=== PATIENT | male | born 1945 | race Caucasian/White ===

== ENCOUNTER 2016-09-01 12:09 | Inpatient (IN) | payer MEDICARE ==
[2016-09-01] MEDS ORDERED: SODIUM CHLORIDE 0.9% 500 ML IV STA (12:46)
--- NOTE | 2016-09-01 12:48 | ED ---
General Adult HPI - General Chief complaint: Recheck/Abnormal Lab/Rx Stated complaint: dr sent Time Seen by Provider: 09/01/16 12:15 Source: patient, RN notes reviewed Mode of arrival: wheelchair Limitations: no limitations - History of Present Illness Initial comments: This is a 71-year-old male who presents emergency Department complaining of not feeling well. Patient states for a week now has had a sore throat cough and just been feeling weaker. Patient states he was put on steroids and an antibiotic and did not seem to help. Patient states he has actually had a worse cough now he has sputum production and he is mildly short of breath. Patient denies any chest pain or palpitations. Patient denies any numbness or weakness but does complain he has a slight headache on the left side. Patient denies any lightheadedness or near syncopal episode. Patient denies any recent injury, patient denies any dysuria hematuria or urinary frequency. Patient denies abdominal pain patient denies nausea vomiting diarrhea. Patient states he has been falling more often recently. He has not been injured. - Related Data Home Medications Medication Instructions Recorded Confirmed Aspirin 81 mg PO DAILY 10/09/14 09/01/16 Multivitamins, Thera [Theragran] 1 tab PO DAILY 10/09/14 09/01/16 Hydrochlorothiazide [Hydrodiuril] 25 mg PO DAILY 09/01/16 09/01/16 Loratadine [Claritin] 10 mg PO DAILY 09/01/16 09/01/16 Valsartan [Diovan] 160 mg PO DAILY 09/01/16 09/01/16 Verapamil HCl [Verapamil ER] 120 mg PO DAILY 09/01/16 09/01/16 Allergies Allergy/AdvReac Type Severity Reaction Status Date / Time No Known Allergies Allergy Verified 09/01/16 13:47 Review of Systems ROS Statement: Those systems with pertinent positive or pertinent negative responses have been documented in the HPI. ROS Other: All systems not noted in ROS Statement are negative. Past Medical History Past Medical History: Hypertension Additional Past Medical History / Comment(s): migraines, gout History of Any Multi-Drug Resistant Organisms: None Reported Past Surgical History: Orthopedic Surgery Additional Past Surgical History / Comment(s): rt rotator cuff Past Anesthesia/Blood Transfusion Reactions: No Reported Reaction Past Psychological History: No Psychological Hx Reported Smoking Status: Former smoker Past Alcohol Use History: Occasional Past Drug Use History: None Reported General Exam - General Exam Comments Initial Comments: GENERAL: Patient is well-developed and well-nourished. Patient is nontoxic and well- hydrated and is in mild distress. ENT: Neck is soft and supple. No significant lymphadenopathy is noted. Oropharynx is clear. Moist mucous membranes. Neck has full range of motion without eliciting any pain. EYES: The sclera were anicteric and conjunctiva were pink and moist. Extraocular movements were intact and pupils were equal round and reactive to light. Eyelids were unremarkable. PULMONARY: Unlabored respirations. Good breath sounds bilaterally. No audible rales rhonchi or wheezing was noted. CARDIOVASCULAR: There is a regular rate and rhythm without any murmurs gallops or rubs. ABDOMEN: Soft and nontender with normal bowel sounds. No palpable organomegaly was noted. There is no palpable pulsatile mass. SKIN: Skin is clear with no lesions or rashes and otherwise unremarkable. NEUROLOGIC: Patient is alert and oriented x3. Cranial nerves II through XII are grossly intact. Motor and sensory are also intact. Normal speech, volume and content. Symmetrical smile. MUSCULOSKELETAL: Normal extremities with adequate strength and full range of motion. No lower extremity swelling or edema. No calf tenderness. LYMPHATICS: No significant lymphadenopathy is noted PSYCHIATRIC: Normal psychiatric evaluation. Normal interpersonal interactions appears functionally intact in deals appropriately with others. No signs of depression. No signs of anxiety. Limitations: no limitations Course Vital Signs 09/01/16 09/01/16 12:13 13:26 Temperature 98.8 F 98.1 F Pulse Rate 77 69 Respiratory 18 24 Rate Blood Pressure 124/58 139/61 O2 Sat by Pulse 98 100 Oximetry Medical Decision Making - Medical Decision Making EKG shows normal sinus rhythm at 71 bpm [place] interval is on a 68 QRSs 100 a QT interval 370 QTC is 410. Patient's EKG shows no ST segment elevation or depression or T-wave abdomen is noted. Patient's CT of the head was normal. Patient's chest x-ray was normal. Once I got the labs back patient had a elevated creatinine so I admitted the patient. I spoke with Dr. Mccollum he agreed to admit the patient admitted the patient wrote admit orders. I consult nephrology. Patient also had low sodiums I gave the patient some normal saline to slowly elevate his sodium. - Lab Data Result diagrams: 09/01/16 13:00 09/01/16 13:00 Lab Results 09/01/16 09/01/16 09/01/16 Range/Units 13:00 13:00 13:00 WBC 4.8 (3.8-10.6) k/uL RBC 4.00 L (4.30-5.90) m/uL Hgb 12.8 L (13.0-17.5) gm/dL Hct 37.7 L (39.0-53.0) % MCV 94.2 (80.0-100.0) fL MCH 32.0 (25.0-35.0) pg MCHC 33.9 (31.0-37.0) g/dL RDW 13.8 (11.5-15.5) % PT (9.0-12.0) sec INR (<1.1) APTT (22.0-30.0) sec Sodium 123 L (137-145) mmol/L Potassium 5.2 H (3.5-5.1) mmol/L Chloride 94 L (98-107) mmol/L Carbon Dioxide 15 L (22-30) mmol/L Anion Gap 14 mmol/L BUN 94 H* (9-20) mg/dL Creatinine 4.45 H (0.66-1.25) mg/dL Est GFR (MDRD) Af Amer 16 (>60 ml/min/1.73 sqM) Est GFR (MDRD) Non-Af 13 (>60 ml/min/1.73 sqM) Glucose 96 (74-99) mg/dL Calcium 8.7 (8.4-10.2) mg/dL Magnesium 2.6 H (1.6-2.3) mg/dL Total Bilirubin 0.8 (0.2-1.3) mg/dL AST 68 H (17-59) U/L ALT 180 H (21-72) U/L Alkaline Phosphatase 109 (38-126) U/L Total Creatine Kinase 49 L (55-170) U/L CK-MB (CK-2) 0.7 (0.0-2.4) ng/mL CK-MB (CK-2) Rel Index 1.4 Troponin I <0.012 (0.000-0.034) ng/mL Total Protein 6.5 (6.3-8.2) g/dL Albumin 3.4 L (3.5-5.0) g/dL TSH 1.140 (0.465-4.680) mIU/L Free T4 1.06 (0.78-2.19) ng/dL Urine Color Urine Appearance (Clear) Urine pH (5.0-8.0) Ur Specific [place] (1.001-1.035) Urine Protein (Negative) Urine Glucose (UA) (Negative) Urine Ketones (Negative) Urine Blood (Negative) Urine Nitrate (Negative) Urine Bilirubin (Negative) Urine Urobilinogen (<2.0) mg/dL Ur Leukocyte Esterase (Negative) 09/01/16 09/01/16 Range/Units 13:00 13:20 WBC (3.8-10.6) k/uL RBC (4.30-5.90) m/uL Hgb (13.0-17.5) gm/dL Hct (39.0-53.0) % MCV (80.0-100.0) fL MCH (25.0-35.0) pg MCHC (31.0-37.0) g/dL RDW (11.5-15.5) % PT 11.5 (9.0-12.0) sec INR 1.1 (<1.1) APTT 25.0 (22.0-30.0) sec Sodium (137-145) mmol/L Potassium (3.5-5.1) mmol/L Chloride (98-107) mmol/L Carbon Dioxide (22-30) mmol/L Anion Gap mmol/L BUN (9-20) mg/dL Creatinine (0.66-1.25) mg/dL Est GFR (MDRD) Af Amer (>60 ml/min/1.73 sqM) Est GFR (MDRD) Non-Af (>60 ml/min/1.73 sqM) Glucose (74-99) mg/dL Calcium (8.4-10.2) mg/dL Magnesium (1.6-2.3) mg/dL Total Bilirubin (0.2-1.3) mg/dL AST (17-59) U/L ALT (21-72) U/L Alkaline Phosphatase (38-126) U/L Total Creatine Kinase (55-170) U/L CK-MB (CK-2) (0.0-2.4) ng/mL CK-MB (CK-2) Rel Index Troponin I (0.000-0.034) ng/mL Total Protein (6.3-8.2) g/dL Albumin (3.5-5.0) g/dL TSH (0.465-4.680) mIU/L Free T4 (0.78-2.19) ng/dL Urine Color Yellow Urine Appearance Clear (Clear) Urine pH 5.0 (5.0-8.0) Ur Specific [place] 1.008 (1.001-1.035) Urine Protein Trace H (Negative) Urine Glucose (UA) Negative (Negative) Urine Ketones Negative (Negative) Urine Blood Negative (Negative) Urine Nitrate Negative (Negative) Urine Bilirubin Negative (Negative) Urine Urobilinogen <2.0 (<2.0) mg/dL Ur Leukocyte Esterase Negative (Negative) Disposition Clinical Impression: Acute renal failure, Hyponatremia Disposition: ADMITTED IP TO THIS [facility] Time of Disposition: 14:26
[2016-09-01 13:33] LABS: Appearance,Urine Clear (Clear); Bilirubin,Urine Negative (Negative); Glucose,Urine (UA) Negative (Negative); Ketones,Urine Negative (Negative); Leukocyte Esterase,Urine Negative (Negative); Nitrite,Urine Negative (Negative); Protein,Urine Trace (Negative); Specific Gravity,Urine 1.008 (1.001-1.035); UA Billing (MACRO vs. MICRO) CHEM; Urobilinogen,Urine <2.0 mg/dL (<2.0)
[2016-09-01 13:41] LABS: Calcium 8.7 mg/dL (8.4-10.2); INR 1.1 (<1.1); Magnesium 2.6 mg/dL (1.6-2.3); Potassium 5.2 mmol/L (3.5-5.1); Prothrombin Time 11.5 sec (9.0-12.0); Total Bilirubin 0.8 mg/dL (0.2-1.3); Total Protein 6.5 g/dL (6.3-8.2)
[2016-09-01 13:54] LABS: Basophils % (A) 0 %; CH 32.6; CHCM 34.7; Eosinophils % (A) 1 %; HCT 37.7 % (39.0-53.0); HDW 2.64; HGB 12.8 gm/dL (13.0-17.5); Luc % (Auto) 2; Lymphocytes # (A) 0.3 k/uL (1.0-4.8); Lymphocytes % (A) 5 %; MCHC 33.9 g/dL (31.0-37.0); MCV 94.2 fL (80.0-100.0); Mean Platelet Volume 8.4; Monocytes # (A) 0.2 k/uL (0-1.0); Monocytes % (A) 4 %; Neutrophils # (A) 4.3 k/uL (1.3-7.7); Neutrophils % (A) 88 %; RDW 13.8 % (11.5-15.5); WBC 4.8 k/uL (3.8-10.6); WBC (Perox) 4.62
[2016-09-01 13:59] LABS: Creatine Kinase 49 U/L (55-170)
--- NOTE | 2016-09-01 14:09 | CT ---
EXAMINATION TYPE: CT brain wo con DATE OF EXAM: 09/01/2016 2:00 PM COMPARISON: NONE INDICATION: Weakness DLP: 1213 mGycm, Automated exposure control for dose reduction was used. CONTRAST: None CT of the brain is performed utilizing 3 mm thick sections through the posterior fossa and 3 mm thick sections through the remaining calvarium. Study is performed within 24 hours of arrival to the hosp ital. No abnormal hyperdensity is present to suggest an acute intracranial hemorrhage. No mass lesion is evident. No acute infarcts are evident. Mild hypodensity is adjacent to the anterior horns of the lateral vent ricles compatible some mild chronic appearing white matter ischemic change. Ventricles and sulci are appropriate for the patient age. There is some mild mucosal thickening within posterior ethmoid air cells bilaterally. Retention cyst or mild mucosal thickening is within sphenoid sinus. Remaining paranasal sinuses and mastoid air cell s are clear. IMPRESSIONS: 1. Chronic appearing mild white matter ischemic changes.
[2016-09-01 14:12] LABS: Creatine Kinase MB 0.7 ng/mL (0.0-2.4); Troponin I <0.012 ng/mL (0.000-0.034)
--- NOTE | 2016-09-01 14:14 | XR ---
EXAMINATION TYPE: XR chest 2V DATE OF EXAM: 09/01/2016 1:42 PM COMPARISON: NONE HISTORY: Cough and congestion with weakness. TECHNIQUE: Frontal and lateral views of the chest are obtained. FINDINGS: There is no focal air space opacity, pleural effusion, or pneumothorax seen. The cardiac silhouette size is within normal limits with atherosclerotic thoracic aorta. Multilevel spurring in t he thoracolumbar spine is present. Degenerative arthropathy bilateral acromioclavicular joints is pre sent. IMPRESSION: No acute cardiopulmonary process.
[2016-09-01] MEDS ORDERED: SODIUM CHLORIDE 0.9% 1,000 ML IV ONE (14:26)
[2016-09-01 14:35] LABS: Manual Review Performed
[2016-09-01 14:36] LABS: RBC Morphology Normal
[2016-09-01] MEDS ORDERED: HYDROmorphone 1 MG/ML 1 ML SYRINGE IVP PRN (16:18)
[2016-09-01] MEDS ORDERED: ALPRAZolam 0.25 MG TAB PO PRN (16:18)
--- NOTE | 2016-09-01 19:38 | HP ---
DATE OF ADMISSION: 09/01/2016 CHIEF COMPLAINT: Not feeling well and renal failure. HISTORY OF PRESENT ILLNESS: This 71-year-old gentleman with a past medical history of multiple medical problems, including hypertension, history of migraine, history of gout in bilateral feet, history of right rotator cuff injury, being followed by Dr. Maldonado in the outpatient setting, was not feeling well for the past one week. The patient was having cough and throat. He was started on antibiotics and steroids. Because of lack of improvement, patient went to Dr. Maldonado's office. Blood work was done, and because of concerns about renal failure, the patient was sent to [facility] emergency room and admitted for further evaluation and treatment. Of note, the creatinine was found to be 4.45, indicating acute renal failure. BUN is 95. AST and ALT were also elevated. Creatine kinase was 49. Sodium was 123, potassium 5.2. The patient was admitted for further evaluation and treatment. Patient had some thrombocytopenia and anemia, also. There is no history of any rigor or chills. No history of any headache, loss of consciousness. No history of hemoptysis, melena at this time. PAST MEDICAL HISTORY: 1. History of hypertension. 2. Migraine. 3. History of gout bilaterally. 4. History of recent flu-like syndrome. Medications prior to admission include: 1. Verapamil 120 mg p.o. daily. 2. Claritin 10 mg daily. 3. Diovan 160 mg p.o. daily. 4. Multivitamins 1 p.o. daily. 5. HydroDIURIL 25 mg daily. 6. Aspirin 81 mg daily. ALLERGIES: NONE. FAMILY HISTORY: History of COPD. SOCIAL HISTORY: Previous history of smoking. Occasional alcohol intake. REVIEW OF SYSTEMS: ENT: No diminished hearing. No diminished vision. CARDIOVASCULAR SYSTEM: No angina or palpitations. RESPIRATORY: No cough, hemoptysis. GI: No nausea, vomiting. : As mentioned earlier. NERVOUS SYSTEM: No numbness or weakness. ALLERGY/IMMUNOLOGY: No asthma, hayfever. MUSCULOSKELETAL: As mentioned earlier. HEMATOLOGY/ONCOLOGY: No history of anemia. ENDOCRINE: No history of diabetes, hypothyroidism. CONSTITUTIONAL: As mentioned earlier. DERMATOLOGY: Negative. RHEUMATOLOGY: Negative. PSYCHIATRY: As mentioned earlier. PHYSICAL EXAMINATION: Patient alert and oriented x3. Pulse 70, blood pressure 127/72, respiration 18, temperature 97.6, pulse ox 98% on 2 L. HEENT: Conjunctivae normal. Oral mucosa moist. NECK: No jugular venous distention. No carotid bruit. No lymph node enlargement. CARDIOVASCULAR SYSTEM: S1, S2 muffled. No S3. No S4. RESPIRATORY SYSTEM: Breath sounds diminished at the bases. A few scattered rhonchi. No crackles. ABDOMEN: Soft, nontender. No mass palpable. No hepatosplenomegaly. Obese. LEGS: No edema. No swelling. NERVOUS SYSTEM: Higher functions as mentioned earlier. Moves all 4 limbs. No focal motor or sensory deficit. LYMPHATICS: No lymph node palpable in neck, axillae or groin. SKIN: No ulcer, rash, bleeding. JOINTS: No active deforming arthropathy. LABS: WBC 4.8, hemoglobin 12.8, platelets 86. Sodium 123, potassium 5.2. CO2 is 15. Creatinine is 4.45. BUN is 94. The magnesium is 2.6. AST 68, ALT is 180. Albumin is 3.4. ASSESSMENT: 1. Acute renal failure, possibly acute tubular necrosis with prerenal factors. 2. Hyponatremia. 3. Hyperkalemia. 4. Decreased carbon dioxide. 5. Anemia, normocytic. 6. Thrombocytopenia. 7. Increased AST, ALT; possibly mild hepatitis of undetermined etiology. 8. History of recent flu-like syndrome. 9. Hypertension. 10. History of migraines. 11. History of gout. 12. History of degenerative joint disease. 13. History of colonoscopy and polypectomy. 14. Remote history nicotine dependence. 15. FULL CODE. RECOMMENDATIONS AND DISCUSSION: In this 71-year-old gentleman who presented with multiple medical problems, at this time we will monitor the patient closely, continue the current medication, continue the symptomatic treatment. The exact etiology of renal failure is unknown at this time. I would recommend IV fluids and continue to monitor. The home medications will be reconciled. Nephrology will be consulted. Ultrasound of the kidneys will be ordered to rule out the possibility of any obstruction; otherwise, prognosis is guarded because of multiple complex medical issues. Further recommendations to follow. See orders for further details. Will send a report to Dr. Maldonado, who is the primary physician. Discussed with the patient, who understands and agrees. Further recommendations to follow.
[2016-09-01] MEDS: HEPARIN SODIUM,PORCINE 5,000 UNIT/ML 1 ML VIAL SQ SCH (21:28)
[2016-09-01] MEDS: ACETAMINOPHEN TAB 325 MG TAB PO PRN (21:28)
[2016-09-01] MEDS: LEVALBUTEROL NEB 1.25 MG/3 ML AMP INHALATION SCH (22:01)
[2016-09-01] MEDS: MELATONIN 3 MG TABLET PO SCH (22:22)
--- NOTE | 2016-09-02 08:17 | US ---
EXAMINATION TYPE: US kidneys/renal and bladder DATE OF EXAM: 09/02/2016 7:58 AM COMPARISON: NONE CLINICAL HISTORY: Acute renal failure. EXAM MEASUREMENTS: Right Kidney: 15.2 x 8.2 x 7.0 cm Left Kidney: not visualized FINDINGS: multiple cyst right kidney, unable to image left kidney, scanned into pelvis, no left kidn ey visualized; only right ureteral jet seen Right Kidney: enlarged, multiple cysts: 1)3.3 x 3.6 x 3. cm ; 2) 2.5 x 3.2 x 2.4 cm; 3) 4.7 x 4.9 x 3.9 cm; 4) 2.6 x 2.6 x 2.7 cm Left Kidney: not visualized in left renal fossa or left pelvis Bladder: distended with diverticula left Bilateral Jets seen: no, right only No hydronephrosis or nephrolithiasis. IMPRESSION: 1. Suspect bladder diverticulum on the left. 2. Nonvisualization of the left kidney. 3. Right kidney demonstrates multiple cysts which have a simple appearance. A single cyst measuring 3 .3 x 3.6 cm does contain a single calcification compatible with Bosniak classification 2 cyst. Remain ing cysts are compatible with simple Bosniak 1 classification cyst.
[2016-09-02] MEDS: LEVALBUTEROL NEB 1.25 MG/3 ML AMP INHALATION SCH ×3 (08:32→19:54)
[2016-09-02] MEDS: HEPARIN SODIUM,PORCINE 5,000 UNIT/ML 1 ML VIAL SQ SCH ×2 (09:16→20:49)
[2016-09-02] MEDS: PANTOPRAZOLE 40 MG TABLET PO SCH (09:16)
[2016-09-02] MEDS: VERAPAMIL SR 120 MG TABLET.ER PO SCH (09:16)
[2016-09-02 09:33] VITALS: BMI 28.7
[2016-09-02 10:21] LABS: Basophils % (A) 0 %; CH 32.4; Eosinophils % (A) 1 %; HDW 2.67; HGB 11.7 gm/dL (13.0-17.5); Luc # (Auto) 0.08; Luc % (Auto) 3; Lymphocytes # (A) 0.4 k/uL (1.0-4.8); Lymphocytes % (A) 11 %; MCHC 33.4 g/dL (31.0-37.0); MCV 95.6 fL (80.0-100.0); Mean Platelet Volume 8.3; Monocytes # (A) 0.2 k/uL (0-1.0); Monocytes % (A) 5 %; Neutrophils # (A) 2.6 k/uL (1.3-7.7); Neutrophils % (A) 81 %; RBC 3.66 m/uL (4.30-5.90); RDW 13.9 % (11.5-15.5); WBC 3.2 k/uL (3.8-10.6); WBC (Perox) 3.49
[2016-09-02 10:45] LABS: Calcium 8.3 mg/dL (8.4-10.2); Potassium 5.3 mmol/L (3.5-5.1); Total Bilirubin 0.8 mg/dL (0.2-1.3); Total Protein 5.7 g/dL (6.3-8.2)
[2016-09-02] MEDS: SODIUM CHLORIDE 0.9% 1,000 ML IV SCH ×2 (12:55→20:49)
--- NOTE | 2016-09-02 16:30 | CONS ---
DATE OF CONSULTATION: 09/02/2016 REASON FOR CONSULTATION: Renal failure. HISTORY OF PRESENT ILLNESS: Patient is a 71-year-old male who was admitted to the hospital with complaints of not feeling well and he was weak. He had not been eating much. Patient was initially treated on antibiotics and steroids as outpatient, but since he did not improve and outpatient blood work also showed worsening renal function, therefore patient was advised admission. He denied the use of any non-steroidal anti-inflammatory agents. Admission sodium was 123 and serum creatinine 4.45 with a BUN of 94. Patient has been maintained on IV saline and his sodium has now improved to 130 and serum creatinine down to 2.53. He denies any prior history of kidney diseases. The UA is fairly benign and blood pressure was not significantly low at the time of admission. PAST MEDICAL HISTORY: 1. Hypertension. 2. Gout. 3. Migraine. Medications prior to admission included: 1. Verapamil. 2. Claritin. 3. Diovan. 4. Multivitamins. 5. HydroDIURIL. 6. Aspirin. ALLERGIES: NONE. REVIEW OF SYSTEMS: As per HPI. Other systems negative. On examination, patient is currently comfortable, awake. He is not in any acute distress. Blood pressure is 118/65, heart rate 86 per minute. He is afebrile. EXAMINATION OF THE HEART: S1 and S2. EXAMINATION OF THE LUNGS: Bilateral breath sounds are heard. Decreased breath sounds in bases. ABDOMEN: Soft, nontender. Examination of lower extremities shows no evidence of edema. BEHAVIOR SPECIALIST exam is grossly intact. Labs show sodium 130, potassium 5.3, BUN 70, serum creatinine 2.53. Hemoglobin 11.7 g/dL. UA shows trace protein. Chest x-ray was unremarkable. Ultrasound showed possible bladder diverticulum, multiple cysts on the right kidney which appeared to be benign. Patient does not have a left kidney. ASSESSMENT: 1. Acute kidney injury, prerenal, currently improving with IV hydration. 2. Rule out chronic kidney disease with solitary kidney, as a left kidney is not identified on the ultrasound. We do not have previous labs available for comparison. 3. Hypovolemic hyponatremia, improved with saline. 4. Mild metabolic acidosis secondary to renal failure, currently improved. 5. Hypertension, currently controlled. Avoid hypotension. PLAN: Continue IV fluids. Repeat labs in a.m. Thank you for this consultation. Will continue to follow the patient with you during his hospitalization.
--- NOTE | 2016-09-02 16:31 | P.PN ---
Subjective Date of service 09/02/2016. Progress note being dictated for Dr. Mccollum. Interval history: This a 71-year-old gentleman admitted with acute renal failure , possibly acute tubular necrosis. Prerenal factors, hyponatremia, hyperkalemia , mild elevated LFTs, recent flulike syndrome, tested negative for influenza and multiple other medical issues. Brain CT reporting chronic appearing mild white matter ischemic changes Maintained on IV fluid hydration with significant improvement in renal function and electrolytes. Renal ultrasound reporting suspected bladder diverticulum on the left, nonvisualization of the left kidney , right kidney demonstrated multiple cysts with a simple. 6, single cyst measuring 3.3 x 3.6 cm. No hydronephrosis no nephrolithiasis. Single episode of large explosive diarrhea this morning. Evaluated by dietary with ensure supplements recommended. Nonproductive cough. Minimal ambulation. Denies chest pain, palpitations or increasing shortness of breath. Review of systems: HEENT: Denies headache or focal deficits. Denies any dizziness or lightheadedness. Respiratory: Denies any increased shortness of breath. Cardiac: Denies any chest pain, palpitations. GI: Denies any nausea, vomiting; one large explosive episode of brown diarrhea this morning. Denies any abdominal tenderness. Fair appetite : Denies any dysuria. Psychiatry: Denies any anxiety or depression. Active Medications Acetaminophen (Tylenol Tab) 650 mg PO Q4HR PRN PRN Reason: Fever and/ or Pain Last Admin: 09/01/16 21:28 Dose: 650 mg Alprazolam (Xanax) 0.25 mg PO TID PRN PRN Reason: Anxiety Heparin Sodium (Porcine) (Heparin) 5,000 unit SQ Q12HR [facility] Last Admin: 09/02/16 09:16 Dose: 5,000 unit Hydromorphone HCl (Dilaudid) 0.5 mg IVP Q6HR PRN PRN Reason: Severe Pain Sodium Chloride (Saline 0.9%) 1,000 mls @ 100 mls/hr IV .Q10H [facility] Last Admin: 09/02/16 12:55 Dose: 100 mls/hr Levalbuterol HCl (Xopenex Nebulized) 1.25 mg INHALATION RT-TID [facility] Last Admin: 09/02/16 13:20 Dose: 1.25 mg Melatonin (Melatonin) 3 mg PO HS [facility] Last Admin: 09/01/16 22:22 Dose: Not Given Pantoprazole Sodium (Protonix) 40 mg PO AC-BRKFST [facility] Last Admin: 09/02/16 09:16 Dose: 40 mg Verapamil HCl (Isoptin Sr) 120 mg PO DAILY [facility] Last Admin: 09/02/16 09:16 Dose: 120 mg Objective - Vital Signs Vital signs: Vital Signs Temp 98.2 F 09/02/16 07:00 Pulse 88 09/02/16 13:25 Resp 16 09/02/16 07:00 BP 118/65 09/02/16 07:00 Pulse Ox 95 09/02/16 08:34 Intake & Output 09/01/16 09/02/16 09/02/16 18:59 06:59 18:59 Intake Total 900 800 Output Total 1600 Balance -700 800 Weight 93.5 kg 93.5 kg Intake: IV 900 800 Sodium Chloride 0.9% 1, 900 800 000 ml @ 100 mls/hr IV . Q10H ONE Rx#:[id number] Output: Urine 1600 Other: Voiding Method Toilet Urinal Urinal - Exam PHYSICAL EXAM: VITAL SIGNS: As above GENERAL: [Lying in bed, tired appearing] HEENT: [Pupils equal conjunctiva normal.] NECK: [Supple, no JVD] RESPIRATORY EFFORT:[Normal] LUNGS: [Bilateral bases diminished, no crackles wheezes or rhonchi] CARDIOVASCULAR[regular S1 and S2, no murmurs rubs or gallops] GI: [Abdomen soft, nontender, positive bowel sounds. No guarding] PSYCH: [Alert and oriented -3, mood and affect normal.] NEURO: [Gross neurological examination did not reveal any focal deficits, moves all 4 extremities, strength and sensation intact.] - Labs CBC & Chem 7: 09/02/16 09:35 09/02/16 09:35 Labs: Abnormal Lab Results - Last 24 Hours (Table) 09/02/16 09/02/16 Range/Units 09:35 09:35 WBC 3.2 L (3.8-10.6) k/uL RBC 3.66 L (4.30-5.90) m/uL Hgb 11.7 L (13.0-17.5) gm/dL Hct 35.0 L (39.0-53.0) % Plt Count 80 L (150-450) k/uL Lymphocytes # 0.4 L (1.0-4.8) k/uL Sodium 130 L (137-145) mmol/L Potassium 5.3 H (3.5-5.1) mmol/L Carbon Dioxide 17 L (22-30) mmol/L BUN 70 H (9-20) mg/dL Creatinine 2.53 H (0.66-1.25) mg/dL Calcium 8.3 L (8.4-10.2) mg/dL ALT 147 H (21-72) U/L Total Protein 5.7 L (6.3-8.2) g/dL Albumin 2.9 L (3.5-5.0) g/dL Triglycerides 180 H (<150) mg/dL HDL Cholesterol 21 L (40-60) mg/dL Assessment and Plan Plan: 1. Acute renal failure, possibly acute tubular necrosis with prerenal factors. 2. [Hyponatremia]. 3. [Hyperkalemia]. 4. [Decreased CO2]. 5. [Anemia, normocytic, possibly related to renal failure]. 6. [Thrombocytopenia]. 7. [Possible mild hepatitis of undetermined etiology with mildly elevated AST and ALT]. 8. Recent flulike syndrome 9. Hypertension 10. History of migraines 11. History of gout 12. Degenerative joint disease, uses walker at home 13. Remote nicotine history dependence 14. Hypoalbuminemia secondary to fair to poor diet intake Plan: Continue on current medication regime ,PPI, monitoring and symptomatic treatment. Continue with dietary supplements between meals. Discussed increasing yogurt intake. Increase ambulation as tolerated. Nephrology consult in place with recommendations pending. The impression and plan of care has been dictated as directed. : I performed a H&P examination of this patient and discussed the same with the dictator. I agree with the dictator's note. Any additional findings/opinions/ etc. will be noted.
[2016-09-02] MEDS: MELATONIN 3 MG TABLET PO SCH (20:46)
--- NOTE | 2016-09-02 20:46 | PN ---
DATE OF SERVICE: 09/02/2016 This 71-year-old gentleman admitted with acute renal failure of undetermined etiology, being closely monitored. Seen and evaluated the patient along with nurse practitioner. Please refer to the nurse practitioner notes and impression documented as a scribe for further information. Ultrasound of the kidneys showed multiple stent suspected bladder diverticula. UA unremarkable. Influenza is negative. Creatinine is improving today at 2.53 with IV fluids. Prognosis guarded. Further recommendations to follow. MTDD
[2016-09-03] MEDS: PANTOPRAZOLE 40 MG TABLET PO SCH (07:36)
[2016-09-03] MEDS: ACETAMINOPHEN TAB 325 MG TAB PO PRN ×2 (07:36→20:49)
[2016-09-03] MEDS: LEVALBUTEROL NEB 1.25 MG/3 ML AMP INHALATION SCH ×3 (07:39→19:38)
[2016-09-03 09:36] LABS: Aty Lym Flag Slight; CH 32.5; CHCM 33.5; HCT 32.5 % (39.0-53.0); HGB 10.8 gm/dL (13.0-17.5); MCH 32.3 pg (25.0-35.0); MCHC 33.1 g/dL (31.0-37.0); MCV 97.7 fL (80.0-100.0); Mean Platelet Volume 9.1; RBC 3.33 m/uL (4.30-5.90); WBC 2.3 k/uL (3.8-10.6); WBC (Perox) 2.29
[2016-09-03 09:42] LABS: Calcium 8.3 mg/dL (8.4-10.2); Potassium 4.7 mmol/L (3.5-5.1); Total Bilirubin 0.6 mg/dL (0.2-1.3); Total Protein 5.5 g/dL (6.3-8.2)
[2016-09-03] MEDS: SODIUM CHLORIDE 0.9% 1,000 ML IV SCH (10:52)
[2016-09-03] MEDS: VERAPAMIL SR 120 MG TABLET.ER PO SCH (11:00)
[2016-09-03] MEDS: HEPARIN SODIUM,PORCINE 5,000 UNIT/ML 1 ML VIAL SQ SCH ×2 (11:00→20:52)
[2016-09-03 11:08] LABS: Add Differential Manual Differential
[2016-09-03 11:12] LABS: Manual Review Performed; Nucleated Red Blood Cells 0 /100 WBC (0-0); Total Cells Counted 100
--- NOTE | 2016-09-03 11:20 | P.PN ---
Subjective Patient is seen in follow-up for acute kidney injury. Unclear as to what his baseline renal function is. Creatinine was elevated at 4.4 on admission and is improved to 1.93 today. Patient presented with weakness and was noted to have worsening renal function and subsequently came to the hospital. He is currently maintained on normal saline running at 100 mL an hour. He denies any vomiting or diarrhea. Denies any prior history of kidney disease. Admits to good urine output. No hematuria or dysuria. Vital signs are stable. General: The patient appeared well nourished and normally developed. HEENT: Head exam is unremarkable. Neck is without jugular venous distension. LUNGS: Lungs are clear to auscultation and percussion. Breath sounds decreased. HEART: Rate and Rhythm are regular. First and second heart sounds normal. No murmurs, rubs or gallops. ABDOMEN: Abdominal exam reveals normal bowel sounds. Non-tender and non- distended. No evidence of peritonitis. EXTREMITITES: No clubbing, cyanosis, or edema. Objective - Vital Signs Vital signs: Vital Signs Temp 97.4 F L 09/03/16 07:00 Pulse 64 09/03/16 07:49 Resp 18 09/03/16 07:00 BP 100/53 09/03/16 07:00 Pulse Ox 100 09/03/16 07:39 Intake & Output 09/02/16 09/03/16 09/03/16 18:59 06:59 18:59 Intake Total 800 Output Total 500 750 Balance 300 -750 Weight 93.5 kg Intake: IV 800 Sodium Chloride 0.9% 1, 800 000 ml @ 100 mls/hr IV . Q10H ONE Rx#:[id number] Output: Urine 500 750 Other: Voiding Method Urinal Urinal # Voids 1 - Labs CBC & Chem 7: 09/03/16 08:30 09/03/16 08:30 Labs: Abnormal Lab Results - Last 24 Hours (Table) 09/03/16 09/03/16 Range/Units 08:30 08:30 WBC 2.3 L (3.8-10.6) k/uL RBC 3.33 L (4.30-5.90) m/uL Hgb 10.8 L (13.0-17.5) gm/dL Hct 32.5 L (39.0-53.0) % Plt Count 73 L (150-450) k/uL Lymphocytes # (Manual) 0.6 L (1.0-4.8) k/uL Sodium 135 L (137-145) mmol/L Chloride 108 H (98-107) mmol/L Carbon Dioxide 15 L (22-30) mmol/L BUN 55 H (9-20) mg/dL Creatinine 1.93 H (0.66-1.25) mg/dL Glucose 125 H (74-99) mg/dL Calcium 8.3 L (8.4-10.2) mg/dL ALT 139 H (21-72) U/L Total Protein 5.5 L (6.3-8.2) g/dL Albumin 2.7 L (3.5-5.0) g/dL Assessment and Plan Plan: Assessment: #1. Nonoliguric acute kidney injury mostly prerenal in nature. Improving with IV hydration. Creatinine down to 1.93 today. #2. Metabolic acidosis secondary to acute kidney injury as well as IV fluids. #3. Chronic kidney disease. Unclear baseline renal function. Etiology is solitary right kidney. #4. Benign hypertension. Controlled. Plan: Discontinue normal saline. Start isotonic sodium bicarbonate drip to be run at 100 mL an hour. Encourage oral intake. Avoid nephrotoxic agents and hypotensive episodes. Repeat electrolytes in the morning.
[2016-09-03] MEDS: DEXTROSE 5% IN WATER 1,000 ML with SODIUM BICARB (1 MEQ/ML) 150 ML IV SCH ×2 (12:37→22:39)
[2016-09-03] MEDS ORDERED: CALAMINE/ZINC OXIDE LOTION 177 ML BTL TOPICAL PRN (14:09)
--- NOTE | 2016-09-03 14:28 | P.PN ---
Subjective Date of service 09/03/2016. Progress note being dictated for Dr. Mccollum. Interval history: This a 71-year-old gentleman admitted with acute renal failure , hyponatremia, hyperkalemia, mild elevated LFTs, recent flulike syndrome, tested negative for influenza and multiple other medical issues. Maintained on IV fluid hydration with continued improvement in renal function and electrolytes. Fair diet intake, no nausea or vomiting. No further diarrhea. Nonproductive cough. Minimal ambulation. Complains of right posterior flank pain, itchy ,appears to be herpes zoster with oozing pustules localized. Evaluated by a nephrology with recommendations noted. Denies chest pain, palpitations or increasing shortness of breath. Review of systems: HEENT: Denies headache or focal deficits. Denies any dizziness or lightheadedness. Respiratory: Denies any increased shortness of breath. Cardiac: Denies any chest pain, palpitations. GI: Denies any nausea, vomiting, or diarrhea Denies any abdominal tenderness. Fair appetite : Denies any dysuria. Psychiatry: Denies any anxiety or depression. Active Medications Generic Name Dose Route Start Last Admin Trade Name Freq PRN Reason Stop Dose Admin Acetaminophen 650 mg 09/01/16 21:14 09/03/16 07:36 Tylenol Tab PO 650 mg Q4HR PRN Administration Fever and/ or Pain Alprazolam 0.25 mg 09/01/16 16:18 Xanax PO TID PRN Anxiety Calamine 1 applic 09/03/16 14:09 Calamine Lotion TOPICAL TID PRN Skin Irritation Heparin Sodium (Porcine) 5,000 unit 09/01/16 21:00 09/03/16 11:00 Heparin SQ 5,000 unit Q12HR WILFREDO Administration Hydromorphone HCl 0.5 mg 09/01/16 16:18 Dilaudid IVP Q6HR PRN Severe Pain Sodium Bicarbonate 150 ml/ 1,150 mls @ 100 mls/hr 09/03/16 11:45 09/03/16 12: 37 Dextrose/Water IV 100 mls/hr .[id number] WILFREDO Administration Levalbuterol HCl 1.25 mg 09/01/16 20:00 09/03/16 07:39 Xopenex Nebulized INHALATION 1.25 mg RT-TID WILFREDO Administration Melatonin 3 mg 09/01/16 21:00 09/02/16 20:46 Melatonin PO Not Given HS WILFREDO Pantoprazole Sodium 40 mg 09/02/16 07:30 09/03/16 07:36 Protonix PO 40 mg [id number] WILFREDO Administration Valacyclovir HCl 500 mg 09/03/16 14:15 Valtrex PO BID WILFREDO Verapamil HCl 120 mg 09/02/16 09:00 09/03/16 11:00 Isoptin Sr PO 120 mg DAILY WILFREDO Administration Objective - Vital Signs Vital signs: Vital Signs Temp 97.4 F L 09/03/16 07:00 Pulse 64 09/03/16 07:49 Resp 18 09/03/16 07:00 BP 100/53 09/03/16 07:00 Pulse Ox 100 09/03/16 07:39 Intake & Output 09/02/16 09/03/16 09/03/16 18:59 06:59 18:59 Intake Total 800 Output Total 500 750 Balance 300 -750 Weight 93.5 kg Intake: IV 800 Sodium Chloride 0.9% 1, 800 000 ml @ 100 mls/hr IV . Q10H ONE Rx#:[id number] Output: Urine 500 750 Other: Voiding Method Urinal Urinal # Voids 1 - Labs CBC & Chem 7: 09/03/16 08:30 09/03/16 08:30 Labs: Abnormal Lab Results - Last 24 Hours (Table) 09/02/16 09/03/16 09/03/16 Range/Units 09:35 08:30 08:30 WBC 2.3 L (3.8-10.6) k/uL RBC 3.33 L (4.30-5.90) m/uL Hgb 10.8 L (13.0-17.5) gm/dL Hct 32.5 L (39.0-53.0) % Plt Count 73 L (150-450) k/uL Sodium 130 L 135 L (137-145) mmol/L Potassium 5.3 H (3.5-5.1) mmol/L Chloride 108 H (98-107) mmol/L Carbon Dioxide 17 L 15 L (22-30) mmol/L BUN 70 H 55 H (9-20) mg/dL Creatinine 2.53 H 1.93 H (0.66-1.25) mg/dL Glucose 125 H (74-99) mg/dL Calcium 8.3 L 8.3 L (8.4-10.2) mg/dL ALT 147 H 139 H (21-72) U/L Total Protein 5.7 L 5.5 L (6.3-8.2) g/dL Albumin 2.9 L 2.7 L (3.5-5.0) g/dL Triglycerides 180 H (<150) mg/dL HDL Cholesterol 21 L (40-60) mg/dL Assessment and Plan Plan: 1. Acute renal failure, possibly acute tubular necrosis with prerenal factors. 2. [Hyponatremia]. 3. [Hyperkalemia]. 4. [Decreased CO2]. 5. [Anemia, normocytic, possibly related to renal failure]. 6. [Thrombocytopenia]. 7. [Possible mild hepatitis of undetermined etiology with mildly elevated AST and ALT]. 8. Recent flulike syndrome 9. Hypertension 10. History of migraines 11. History of gout 12. Degenerative joint disease, uses walker at home 13. Remote nicotine history dependence 14. Hypoalbuminemia secondary to fair to poor diet intake 15. Right posterior flank herpes zoster 16. Metabolic acidosis secondary to acute renal failure and IV fluids, on isotonic sodium bicarb drip. Plan: Continue on current medication regime ,PPI, isotonic bicarb drip, monitoring and symptomatic treatment. Valtrex added to med regime, pharmacy to adjust dose for renal. Calamine to affected localized area. Continue with dietary supplements between meals. Increase ambulation as tolerated. Follow closely with nephrology. Further recommendations to follow. The impression and plan of care has been dictated as directed. : I performed a H&P examination of this patient and discussed the same with the dictator. I agree with the dictator's note. Any additional findings/opinions/ etc. will be noted.
[2016-09-03] MEDS: valACYclovir 500 MG TAB PO SCH ×2 (15:48→20:52)
--- NOTE | 2016-09-03 19:21 | PN ---
DATE OF SERVICE: 09/03/2016 This 71-year-old gentleman with acute renal failure also had herpes zoster lesions on the left lower sacral lumbar area. Seen and evaluated the patient along with the nurse practitioner. Please refer to the nurse practitioner's notes and impressions documented as a scribe for further information. Will add Valtrex to the current regimen. Further recommendations to follow.
[2016-09-03] MEDS: MELATONIN 3 MG TABLET PO SCH (20:52)
[2016-09-04] MEDS: LEVALBUTEROL NEB 1.25 MG/3 ML AMP INHALATION SCH ×2 (07:17→13:37)
[2016-09-04] MEDS: HEPARIN SODIUM,PORCINE 5,000 UNIT/ML 1 ML VIAL SQ SCH (07:48)
[2016-09-04] MEDS: valACYclovir 500 MG TAB PO SCH (07:48)
[2016-09-04] MEDS: VERAPAMIL SR 120 MG TABLET.ER PO SCH (07:48)
[2016-09-04] MEDS: PANTOPRAZOLE 40 MG TABLET PO SCH (07:49)
[2016-09-04 07:50] VITALS: BP 126/62; PULSE 65; RESP 18; TEMP 97
[2016-09-04] MEDS: ACETAMINOPHEN TAB 325 MG TAB PO PRN (07:51)
[2016-09-04 07:53] LABS: Basophils % (A) 0 %; CH 32.8; CHCM 34.3; Eosinophils % (A) 1 %; HCT 30.2 % (39.0-53.0); HDW 2.67; HGB 10.3 gm/dL (13.0-17.5); Luc # (Auto) 0.06; Luc % (Auto) 3; Lymphocytes # (A) 0.5 k/uL (1.0-4.8); Lymphocytes % (A) 26 %; MCH 32.8 pg (25.0-35.0); MCHC 34.1 g/dL (31.0-37.0); MCV 96.3 fL (80.0-100.0); Mean Platelet Volume 9.7; Monocytes # (A) 0.1 k/uL (0-1.0); Monocytes % (A) 6 %; Neutrophils # (A) 1.2 k/uL (1.3-7.7); Neutrophils % (A) 63 %; RBC 3.14 m/uL (4.30-5.90); RDW 13.8 % (11.5-15.5); WBC (Perox) 1.87
[2016-09-04 08:02] LABS: WBC 1.9 k/uL (3.8-10.6)
[2016-09-04 08:09] LABS: Calcium 8.4 mg/dL (8.4-10.2); Magnesium 1.7 mg/dL (1.6-2.3); Potassium 4.4 mmol/L (3.5-5.1); Total Bilirubin 0.6 mg/dL (0.2-1.3); Total Protein 5.3 g/dL (6.3-8.2)
[2016-09-04] MEDS ORDERED: SODIUM CHLORIDE 0.9% 1,000 ML IV SCH (09:30)
--- NOTE | 2016-09-04 09:30 | P.PN ---
Subjective Patient is seen in follow-up for acute kidney injury. Unclear as to what his baseline renal function is. Creatinine was elevated at 4.4 on admission and is improved to 1.44 today. Patient presented with weakness and was noted to have worsening renal function and subsequently came to the hospital. He is currently maintained on isotonic sodium bicarbonate drip running at 100 mL an hour. He denies any vomiting or diarrhea. Denies any prior history of kidney disease. Admits to good urine output. No hematuria or dysuria. Vital signs are stable. General: The patient appeared well nourished and normally developed. HEENT: Head exam is unremarkable. Neck is without jugular venous distension. LUNGS: Lungs are clear to auscultation and percussion. Breath sounds decreased. HEART: Rate and Rhythm are regular. First and second heart sounds normal. No murmurs, rubs or gallops. ABDOMEN: Abdominal exam reveals normal bowel sounds. Non-tender and non- distended. No evidence of peritonitis. EXTREMITITES: No clubbing, cyanosis, or edema. Objective - Vital Signs Vital signs: Vital Signs Temp 97.0 F L 09/04/16 07:00 Pulse 65 09/04/16 07:00 Resp 18 09/04/16 07:00 BP 126/62 09/04/16 07:00 Pulse Ox 96 09/04/16 07:00 Intake & Output 09/03/16 09/04/16 09/04/16 18:59 06:59 18:59 Intake Total 1100 Output Total 200 Balance -200 1100 Weight 93.5 kg Intake: Intake, IV Titration 1100 Amount Dextrose 5% in Water 1, 1100 000 ml @ 100 mls/hr IV . [id number] WILFREDO with Sodium Bicarb (1 Meq/ml) 150 ml Rx#:[id number] Output: Urine 200 Other: Voiding Method Urinal Urinal # Voids 2 1 - Labs CBC & Chem 7: 09/04/16 07:19 09/04/16 07:19 Labs: Abnormal Lab Results - Last 24 Hours (Table) 09/03/16 09/03/16 09/04/16 Range/Units 08:30 08:30 07:19 WBC 2.3 L 1.9 L* (3.8-10.6) k/uL RBC 3.33 L 3.14 L (4.30-5.90) m/uL Hgb 10.8 L 10.3 L (13.0-17.5) gm/dL Hct 32.5 L 30.2 L (39.0-53.0) % Plt Count 73 L 103 L (150-450) k/uL Neutrophils # 1.2 L (1.3-7.7) k/uL Lymphocytes # 0.5 L (1.0-4.8) k/uL Lymphocytes # (Manual) 0.6 L (1.0-4.8) k/uL Sodium 135 L (137-145) mmol/L Chloride 108 H (98-107) mmol/L Carbon Dioxide 15 L (22-30) mmol/L BUN 55 H (9-20) mg/dL Creatinine 1.93 H (0.66-1.25) mg/dL Glucose 125 H (74-99) mg/dL Calcium 8.3 L (8.4-10.2) mg/dL ALT 139 H (21-72) U/L Total Protein 5.5 L (6.3-8.2) g/dL Albumin 2.7 L (3.5-5.0) g/dL 09/04/16 Range/Units 07:19 WBC (3.8-10.6) k/uL RBC (4.30-5.90) m/uL Hgb (13.0-17.5) gm/dL Hct (39.0-53.0) % Plt Count (150-450) k/uL Neutrophils # (1.3-7.7) k/uL Lymphocytes # (1.0-4.8) k/uL Lymphocytes # (Manual) (1.0-4.8) k/uL Sodium (137-145) mmol/L Chloride (98-107) mmol/L Carbon Dioxide (22-30) mmol/L BUN 41 H (9-20) mg/dL Creatinine 1.44 H (0.66-1.25) mg/dL Glucose 121 H (74-99) mg/dL Calcium (8.4-10.2) mg/dL ALT 111 H (21-72) U/L Total Protein 5.3 L (6.3-8.2) g/dL Albumin 2.7 L (3.5-5.0) g/dL Assessment and Plan Plan: Assessment: #1. Nonoliguric acute kidney injury mostly prerenal in nature. Improving with IV hydration. Creatinine down to 1.44 today. #2. Metabolic acidosis secondary to acute kidney injury as well as IV fluids. Improved. #3. Chronic kidney disease. Unclear baseline renal function. Etiology is solitary right kidney. #4. Benign hypertension. Controlled. Plan: Discontinue sodium bicarbonate drip. Start normal saline to be run at 50 mL an hour. Encourage oral intake. Avoid nephrotoxic agents and hypotensive episodes. Repeat electrolytes in the morning.
--- NOTE | 2016-09-05 10:31 | DS ---
DATE OF ADMISSION: 09/01/2016 DATE OF DISCHARGE: 09/04/2016 FINAL DIAGNOSES: 1. Acute renal failure, possible acute tubular necrosis and prerenal factors, improved. 2. Hyponatremia. 3. Hyperkalemia. 4. Decreased CO2. 5. Anemia, normocytic, possibly secondary to renal failure. 6. Thrombocytopenia. 7. Possible mild hepatitis of undetermined etiology with mild elevated AST, ALT. 8. Herpes zoster in left lower lumbar and upper sacral areas. 9. Recent flu-like syndrome. 10. Hypertension. 11. History of migraines. 12. History of gout. 13. Degenerative joint disease. Uses a walker. 14. Remote history of nicotine dependence. 15. History of hypoalbuminemia secondary to poor p.o. intake. 16. Metabolic acidosis secondary to acute renal failure on IV fluids on isotonic sodium bicarb. DISCHARGE DISPOSITION: The patient will be discharged in a stable condition with guarded prognosis, which is cleared by multiple consultants, including Dr. Richards. HISTORY OF PRESENT ILLNESS: This 71-year-old gentleman with a past medical history of multiple medical problems was admitted with significant features of renal failure. Patient follows with Dr. Maldonado in the outpatient setting. Creatinine was elevated at 4.45. The patient was thought to be in prerenal renal failure and with IV fluids, the creatinine improved to 1.44. The white count is 1.9, hemoglobin 10.3 and platelets are 103 at the time of discharge, but rather stable. Recommend to continue outpatient followup. Patient also had herpes zoster and Valtrex was given. Otherwise, the patient had overall improvement. On exam, vitals are stable. CARDIOVASCULAR: S1 and S2 muffled. ABDOMEN: Soft. NERVOUS SYTEM: No focal deficit. LABS: As mentioned earlier, creatinine is 1.44, which is stable. The patient will be discharged in stable condition with guarded prognosis. 1. Diet is cardiac. 2. Activity limited until followup. 3. Follow up with Dr. Maldonado in 2 to 3 days. 4. Follow up with Dr. Richards is advised. 5. Tylenol 650 q.4 p.r.n. 6.albuterol 2 Puffs q.i.d. and p.r.n. 7. Aspirin 81 mg p.o. daily. 8. Calamine lotion 1 application topically daily. 9. Claritin 10 mg p.o. daily. 10. mvi p.o. b.i.d. 11. Protonix 40 mg daily. 12. Verapamil 120 mg p.o. daily. 13. Valtrex 5 mg b.i.d. for 9 days. The patient will be discharged in stable condition with guarded prognosis. Total time taken 35 minutes. MTDD
== END 2016-09-04 15:15 | disposition home or self-care (01) | DRG 683 ==
LOC: EC 12:09 → 5MS5E 14:27
PROVIDERS: ADMIT Hospitalist; ATTEND Hospitalist
DX: N17.0 Acute kidney failure with tubular necrosis (principal); E87.1 Hypo-osmolality and hyponatremia; E87.2 Acidosis; Q60.0 Renal agenesis, unilateral; D69.6 Thrombocytopenia, unspecified; E88.09 Other disorders of plasma-protein metabolism, not elsewhere classified; E87.5 Hyperkalemia; K75.9 Inflammatory liver disease, unspecified; B02.9 Zoster without complications; D64.9 Anemia, unspecified; J02.9 Acute pharyngitis, unspecified; I12.9 Hypertensive chronic kidney disease with stage 1 through stage 4 chronic kidney disease, or unspecified chronic kidney disease; N18.9 Chronic kidney disease, unspecified; M19.91 Primary osteoarthritis, unspecified site; Z79.01 Long term (current) use of anticoagulants; Z79.82 Long term (current) use of aspirin; Z79.899 Other long term (current) drug therapy; Z87.891 Personal history of nicotine dependence
CPT/HCPCS: 36415; 70450; 71020; 76770; 80053; 80061; 81003; 82550; 82553; 83735; 84439; 84443; 84484; 84550; 85025; 85610; 85730; 87324; 87502; 93005; 94640; 94760; 96360; 99285

== ENCOUNTER → 2016-09-07 | Outpatient (CLI) | payer MEDICARE ==
[2016-09-07 13:28] LABS: Basophils % (A) 1 %; CH 32.1; Eosinophils % (A) 1 %; HCT 36.8 % (39.0-53.0); HDW 2.62; HGB 12.2 gm/dL (13.0-17.5); Luc # (Auto) 0.12; Luc % (Auto) 3; Lymphocytes % (A) 26 %; MCH 32.4 pg (25.0-35.0); MCHC 33.1 g/dL (31.0-37.0); MCV 97.9 fL (80.0-100.0); Mean Platelet Volume 8.5; Monocytes # (A) 0.2 k/uL (0-1.0); Monocytes % (A) 4 %; Neutrophils # (A) 2.4 k/uL (1.3-7.7); Neutrophils % (A) 65 %; RBC 3.76 m/uL (4.30-5.90); RDW 13.5 % (11.5-15.5); WBC 3.7 k/uL (3.8-10.6); WBC (Perox) 3.74
[2016-09-07 13:44] LABS: Calcium 9.4 mg/dL (8.4-10.2); Potassium 5.8 mmol/L (3.5-5.1)
== END | disposition home or self-care (01) ==
LOC: LABWHC1 13:00
PROVIDERS: ATTEND Nurse Practitioner
DX: D64.9 Anemia, unspecified (principal); N19 Unspecified kidney failure
CPT/HCPCS: 36415; 80048; 85025

== ENCOUNTER → 2016-09-17 | Outpatient (CLI) | payer MEDICARE ==
[2016-09-17 13:39] LABS: Calcium 9.6 mg/dL (8.4-10.2); Magnesium 1.7 mg/dL (1.6-2.3); Phosphorous 3.5 mg/dL (2.5-4.5); Total Bilirubin 0.8 mg/dL (0.2-1.3); Total Protein 6.7 g/dL (6.3-8.2); Uric Acid 8.4 mg/dL (3.5-8.5)
[2016-09-17 13:48] LABS: % Iron Saturation 40.1 % (20-50)
[2016-09-17 13:50] LABS: Basophils % (A) 1 %; CH 32.1; CHCM 32.7; Eosinophils % (A) 0 %; HDW 2.83; HGB 12.3 gm/dL (13.0-17.5); Luc # (Auto) 0.11; Luc % (Auto) 4; Lymphocytes % (A) 38 %; MCHC 32.5 g/dL (31.0-37.0); MCV 98.6 fL (80.0-100.0); Macrocytosis Slight; Mean Platelet Volume 7.8; Monocytes # (A) 0.2 k/uL (0-1.0); Monocytes % (A) 7 %; Neutrophils # (A) 1.3 k/uL (1.3-7.7); Neutrophils % (A) 50 %; RBC 3.85 m/uL (4.30-5.90); RDW 14.8 % (11.5-15.5); WBC 2.6 k/uL (3.8-10.6); WBC (Perox) 2.74
== END ==
LOC: LABWHC1 12:32
PROVIDERS: ATTEND Nurse Practitioner Family
DX: N18.3 Chronic kidney disease, stage 3 (moderate) (principal); D63.1 Anemia in chronic kidney disease; R80.9 Proteinuria, unspecified; N39.0 Urinary tract infection, site not specified; E21.3 Hyperparathyroidism, unspecified; E55.9 Vitamin D deficiency, unspecified; M10.9 Gout, unspecified
CPT/HCPCS: 36415; 80053; 82306; 82728; 83540; 83550; 83735; 83970; 84100; 84550; 85025

== ENCOUNTER → 2016-12-07 | Outpatient (CLI) | payer MEDICARE ==
[2016-12-07 11:55] LABS: CH 31.6; CHCM 34.2; HCT 39.2 % (39.0-53.0); HDW 3.06; HGB 13.2 gm/dL (13.0-17.5); MCH 31.3 pg (25.0-35.0); MCHC 33.7 g/dL (31.0-37.0); MCV 92.9 fL (80.0-100.0); Mean Platelet Volume 8.8; RBC 4.22 m/uL (4.30-5.90); RDW 12.5 % (11.5-15.5); WBC 3.8 k/uL (3.8-10.6)
[2016-12-07 11:58] LABS: Appearance,Urine Clear (Clear); Bilirubin,Urine Negative (Negative); Glucose,Urine (UA) Negative (Negative); Ketones,Urine Negative (Negative); Leukocyte Esterase,Urine Negative (Negative); Nitrite,Urine Negative (Negative); Protein,Urine Negative (Negative); Specific Gravity,Urine 1.008 (1.001-1.035); UA Billing (MACRO vs. MICRO) CHEM; Urobilinogen,Urine <2.0 mg/dL (<2.0)
[2016-12-07 12:15] LABS: ALT 34 U/L (21-72); AST 18 U/L (17-59); Alkaline Phosphatase 78 U/L (38-126); Anion Gap 10 mmol/L; Blood Urea Nitrogen 28 mg/dL (9-20); Calcium 9.4 mg/dL (8.4-10.2); Carbon Dioxide 23 mmol/L (22-30); Chloride 110 mmol/L (98-107); Glucose 87 mg/dL (74-99); Iron 55 ug/dL (49-181); Magnesium 1.9 mg/dL (1.6-2.3); Non-African American GFR(MDRD) 50 (>60 ml/min/1.73 sqM); Phosphorous 3.1 mg/dL (2.5-4.5); Potassium 5.2 mmol/L (3.5-5.1); Sodium 143 mmol/L (137-145); Total Bilirubin 0.6 mg/dL (0.2-1.3); Total Protein 6.7 g/dL (6.3-8.2); Uric Acid 8.8 mg/dL (3.5-8.5)
[2016-12-07 12:24] LABS: % Iron Saturation 20.4 % (20-50); Total Iron Binding Capacity 270 ug/dL (261-462)
[2016-12-07 12:37] LABS: Creatinine,Urine Random 64.2 mg/dL
== END | disposition home or self-care (01) ==
LOC: LABWHC1 11:26
PROVIDERS: ATTEND Nurse Practitioner Family
DX: N18.3 Chronic kidney disease, stage 3 (moderate) (principal); D64.9 Anemia, unspecified; R80.9 Proteinuria, unspecified; N39.0 Urinary tract infection, site not specified; E21.3 Hyperparathyroidism, unspecified; E55.9 Vitamin D deficiency, unspecified; M10.9 Gout, unspecified
CPT/HCPCS: 36415; 80053; 81003; 82306; 82570; 82728; 83540; 83550; 83735; 83970; 84100; 84156; 84550; 85027

== ENCOUNTER → 2017-01-18 | Outpatient (CLI) | payer MEDICARE ==
[2017-01-18 10:18] LABS: ALT 40 U/L (21-72); AST 22 U/L (17-59); Alkaline Phosphatase 76 U/L (38-126); Anion Gap 8 mmol/L; Blood Urea Nitrogen 31 mg/dL (9-20); Calcium 9.3 mg/dL (8.4-10.2); Carbon Dioxide 27 mmol/L (22-30); Chloride 108 mmol/L (98-107); Glucose 81 mg/dL (74-99); Non-African American GFR(MDRD) 50 (>60 ml/min/1.73 sqM); Potassium 4.8 mmol/L (3.5-5.1); Sodium 143 mmol/L (137-145); Total Bilirubin 0.6 mg/dL (0.2-1.3)
== END | disposition home or self-care (01) ==
LOC: LABWHC1 09:37
PROVIDERS: ATTEND Nurse Practitioner Family
DX: N17.9 Acute kidney failure, unspecified (principal)
CPT/HCPCS: 36415; 80053

== ENCOUNTER → 2017-02-16 | Outpatient (CLI) | payer MEDICARE ==
--- NOTE | 2017-02-16 11:20 | NM ---
EXAMINATION TYPE: NM stress cardiolite complete DATE OF EXAM: 02/16/2017 COMPARISON: NONE HISTORY: Fatigue TECHNIQUE: After the intravenous administration of 10.43 mCi Tc 99m Sestamibi - Rest images obtained 50 minutes post injection. The patient exercised using a BETH protocol and 1 minute prior to peak exercise was injected with 29.5 mCi Tc 99m Sestamibi - Stress images obtained 40 minutes post inject ion. FINDINGS: There is good uptake of radiopharmaceutical by the left ventricle without fixed defect. The re is some thinning of the inferior wall of the left ventricle. This could BE due to diaphragmatic at tenuation or previous nontransmural infarct. There is no convincing evidence of ischemic change. Wall motion is normal and ejection fraction is normal at 63%. IMPRESSION: I DO NOT SEE CONVINCING EVIDENCE OF INDUCIBLE ISCHEMIC CHANGE AT THIS TIME.
--- NOTE | 2017-02-16 12:07 | P.STRESS ---
- Stress Test Note Stress Test Results/Findings: Exam Performed: NM stress cardiolite complete Exam Date: 02/16/17 Reason for Exam: FATIGUE Height: 5 ft 11 in Weight: 92.986 kg Protocol: CARDIOLITE Stage: Duration of Exercise: 8:00 Resting Heart Rate: 63 Resting Blood Pressure: 153/72 Maximum Achieved Heart Rate: 140 Maximum Achieved Blood Pressure: 216/69 85% PMHR: 128 100% PMHR: 150 METS: 9.5 Technologist Comment: Stress Test Results/Findings: This is a 71-year-old gentleman with history of hypertension and smoking history , being evaluated for cardiac status. Baseline EKG showed sinus rhythm with normal CT interval and QRS duration with poor R-wave progression in anterior leads. Blood pressure at rest is 153/72 with pulse rate of 63. A standard dose of Lexiscan was infused. EKGs taken during and after the infusion showed about [address] depressions in inferolateral leads. Patient did not extends any chest pain. Final impression: #1. Borderline positive Lexiscan stress test #2. Report on the nuclear images to be given by the radiologist.
--- NOTE | 2017-02-16 12:39 | ECHOF ---
Referral Reason:R53.83 fatigue N18.3 chronic kidney dis stage 3 MEASUREMENTS -------- HEIGHT: 180.3 cm WEIGHT: 93.0 kg BP: RVIDd: 3.2 cm (< 3.3) IVSd: 1.3 cm (0.6 - 1.1) LVIDd: 5.1 cm (3.9 - 5.3) LVPWd: 1.2 cm (0.6 - 1.1) EDV(Teich): 122 ml IVSs: 1.9 cm LVIDs: 3.7 cm LVPWs: 1.7 cm %IVS Thck: 48 % ESV(Teich): 57 ml EF(Teich): 54 % %FS: 28 % SV(Teich): 66 ml LALs A4C: 4.4 cm LAAs A4C: 15.0 cm LAESV A-L A4C: 43 ml LAESV MOD A4C: 41 ml LALs A2C: 5.2 cm LAAs A2C: 16.3 cm LAESV A-L A2C: 43 ml LAESV MOD A2C: 40 ml LAESV(A-L): 47 ml LAESV Index (A-L): 22.20 ml/m Ao Diam: 3.7 cm (2.0 - 3.7) AV Cusp: 2.5 cm (1.5 - 2.6) LA Diam: 3.7 cm (2.7 - 3.8) MV EXCURSION: 12.538 mm (> 18.000) MV EF SLOPE: 60 mm/s (70 - 150) EPSS: 1.5 cm MV E William: 0.89 m/s MV DecT: 272 ms MV Dec [place]: 3.3 m/s MV A William: 0.96 m/s MV E/A Ratio: 0.93 MV PHT: 79 ms AV Vmax: 1.25 m/s AV maxP.20 mmHg AR Vmax: 3.61 m/s AR maxP.29 mmHg AR PHT: 752 ms AR Dec Time: 2594 ms AR Dec [place]: 1.4 m/s TR Vmax: 0.91 m/s TR maxP.33 mmHg RAP: 5.00 mmHg RVSP: 8.33 mmHg FINDINGS -------- Sinus rhythm. This was a technically adequate study. There is mild concentric left ventricular hypertrophy. Overall left ventricular systolic function is normal with, an EF between 55 - 60 %. The right ventricle is normal in size and function. Normal LA size by volume 22+/-6 ml/m2. The right atrium is normal in size. Aortic valve is trileaflet and is mildly thickened. There is [id number] aortic regurgitation. The aortic pressure half-time by doppler is 752ms. Pressure half timeis underestimated due to eccentricity of regurgitant jet. There is no evidence of aortic stenosis. The mitral valve leaflets are mildly thickened. There is trace mitral regurgitation. Trace tricuspid regurgitation present. Right ventricular systolic pressure is normal at < 35 mmHg. There is no evidence of pulmonary hypertension. Trace/mild (physiologic) pulmonic regurgitation. The aortic root size is normal. Normal inferior vena cava with normal inspiratory collapse consistent with estimated right atrial pressure of 5 mmHg. The pericardium is normal. There is no pericardial effusion. CONCLUSIONS -------- 1. Sinus rhythm. 2. The mitral valve leaflets are mildly thickened. 3. There is trace mitral regurgitation. 4. Trace tricuspid regurgitation present. 5. Right ventricular systolic pressure is normal at < 35 mmHg. 6. There is no evidence of pulmonary hypertension. 7. Trace/mild (physiologic) pulmonic regurgitation. 8. The aortic root size is normal. 9. There is no pericardial effusion. 10. This was a technically adequate study. 11. There is mild concentric left ventricular hypertrophy. 12. Overall left ventricular systolic function is normal with, an EF between 55 - 60 %. 13. Normal LA size by volume 22+/-6 ml/m2. 14. Aortic valve is trileaflet and is mildly thickened. 15. There is fhei-[id number] aortic regurgitation. 16. The aortic pressure half-time by doppler is 752ms. Pressure half timeis underestimated due to eccentricity of regurgitant jet. 17. There is no evidence of aortic stenosis. WIND INSTRUMENT REPAIRER: Braulio Palacios RDCS
--- NOTE | 2017-02-16 12:53 | EST ---
Stress Test Results/Findings: Exam Performed: NM stress cardiolite complete Exam Date: 02/16/17 Reason for Exam: FATIGUE Height: 5 ft 11 in Weight: 92.986 kg Protocol: CARDIOLITE Stage: Duration of Exercise: 8:00 Resting Heart Rate: 63 Resting Blood Pressure: 153/72 Maximum Achieved Heart Rate: 140 Maximum Achieved Blood Pressure: 216/69 85% PMHR: 128 100% PMHR: 150 METS: 9.5 Technologist Comment: Stress Test Results/Findings: This is a 71-year-old gentleman with history of hypertension and smoking history , being evaluated for cardiac status. Baseline EKG showed sinus rhythm with normal WA interval and QRS duration with poor R-wave progression in anterior leads. Blood pressure at rest is 153/72 with pulse rate of 63. A standard dose of Lexiscan was infused. EKGs taken during and after the infusion showed about [address] depressions in inferolateral leads. Patient did not extends any chest pain. Final impression: #1. Borderline positive Lexiscan stress test #2. Report on the nuclear images to be given by the radiologist. FLORENCED
== END | disposition home or self-care (01) ==
LOC: RADNMMAIN 08:59
PROVIDERS: ATTEND Family Medicine
DX: I08.2 Rheumatic disorders of both aortic and tricuspid valves (principal); N18.3 Chronic kidney disease, stage 3 (moderate)
CPT/HCPCS: 93017; 93306; 78452; A9500

== ENCOUNTER 2017-12-02 07:02 | Day surgery (SDC) | payer MEDICARE ==
[2017-11-30 11:06] VITALS: BMI 29.2
[~2017-12-02 07:02] MED LIST: LACTATED RINGERS 1,000 ML IV SCH
[2017-12-02 07:18] VITALS: TEMP 97.7
[2017-12-02] MEDS ORDERED: LIDOCAINE 1% INJ 10MG/ML (20 ML MDV) ONE (07:45)
[2017-12-02] MEDS ORDERED: PROPOFOL 10 MG/ML 20 ML VIAL IV ONE (07:45)
--- NOTE | 2017-12-02 07:55 | P.GSHP ---
History of Present Illness H&P Date: 12/02/17 Chief Complaint: History of colon polyps This a 72-year-old male with a history of colon polyps. Patient's last colonoscopy was 4 years ago. Past Medical History Past Medical History: Hyperlipidemia, Hypertension, Renal Disease Additional Past Medical History / Comment(s): only has R Kidney/ chronic kidney disease; Hx of migraines & gout in the past History of Any Multi-Drug Resistant Organisms: None Reported Past Surgical History: Orthopedic Surgery Additional Past Surgical History / Comment(s): rt rotator cuff, 2015 colonoscopy with polypectomy (benign).Cataracts Past Anesthesia/Blood Transfusion Reactions: No Reported Reaction Smoking Status: Former smoker - Past Family History Father Family Medical History: COPD Additional Family Medical History / Comment(s): Father of emphysema at the age of 69yrs. Mother Family Medical History: No Reported History Additional Family Medical History / Comment(s): Mother at the age of 75 yrs. Pt recalls that she was healthy. Medications and Allergies Home Medications Medication Instructions Recorded Confirmed Type Aspirin 81 mg PO DAILY 10/09/14 12/02/17 History Multivitamins, Thera [Multivitamin 1 tab PO DAILY 10/09/14 12/02/17 History (formulary)] Loratadine [Claritin] 10 mg PO DAILY 09/01/16 12/02/17 History Calamine/Zinc Oxide Lotion 1 applic TOPICAL TID PRN #0 applic 09/03/16 12/02/17 Rx [Calamine Lotion] Acetaminophen Tab [Tylenol] 650 mg PO Q4HR PRN #0 tab 09/04/16 12/02/17 Rx Allopurinol [Zyloprim] 100 mg PO DAILY 11/30/17 12/02/17 History Atorvastatin [Lipitor] 10 mg PO DAILY 11/30/17 12/02/17 History Furosemide [Lasix] 40 mg PO DAILY 11/30/17 12/02/17 History Valsartan 80 mg PO DAILY 11/30/17 12/02/17 History Verapamil Sr [Isoptin Sr] 180 mg PO BID 11/30/17 12/02/17 History Allergies Allergy/AdvReac Type Severity Reaction Status Date / Time No Known Allergies Allergy Verified 11/30/17 10:58 Surgical - Exam Vital Signs Temp Pulse Resp BP Pulse Ox 97.7 F 61 16 186/64 96 12/02/17 07:14 12/02/17 07:14 12/02/17 07:14 12/02/17 07:14 12/02/17 07:14 - General well developed, no distress - Eyes PERRL - ENT normal pinna - Neck no masses - Respiratory normal expansion - Cardiovascular Rhythm: regular - Abdomen Abdomen: soft, non tender Assessment and Plan Assessment: History of colon polyps. We'll perform colonoscopy.
--- NOTE | 2017-12-02 08:11 | P.OP ---
Date of Procedure: 12/02/17 Preoperative Diagnosis: History of colon polyps Postoperative Diagnosis: Cecal polyp Diverticulosis Procedure(s) Performed: Colonoscopy Anesthesia: MAC Surgeon: Evangelist Fatima Pathology: other (Cecal polyp) Condition: stable Disposition: PACU Description of Procedure: Patient's placed on the endoscopy table in the lateral position. He received IV sedation. Digital rectal exam was performed which revealed no abnormalities. Flexible colonoscope was then placed in the patient's anus passed throughout the entire colon. The ileocecal valve was visualized. The cecum was examined. There was a small sessile polyp in the cecum this was biopsied the cold forcep. The flexible colonoscope was then brought back and the remainder the ascending colon and transverse colon appeared normal. In the descending; there is mild diverticular changes. Scope was then brought back the rectum and this appeared normal. Scope was withdrawn for patient.
[2017-12-02 08:31] VITALS: BP 150/69; PULSE 55; RESP 18
== END 2017-12-02 08:44 | disposition home or self-care (01) ==
LOC: ORWHC2ENDO 07:02
PROVIDERS: ATTEND Surgery
DX: Z12.11 Encounter for screening for malignant neoplasm of colon (principal); D12.0 Benign neoplasm of cecum; K57.30 Diverticulosis of large intestine without perforation or abscess without bleeding; Z86.010 Personal history of colon polyps; E78.5 Hyperlipidemia, unspecified; I12.9 Hypertensive chronic kidney disease with stage 1 through stage 4 chronic kidney disease, or unspecified chronic kidney disease; N18.9 Chronic kidney disease, unspecified; G43.909 Migraine, unspecified, not intractable, without status migrainosus; M10.9 Gout, unspecified; Z90.5 Acquired absence of kidney; Z79.82 Long term (current) use of aspirin; Z79.899 Other long term (current) drug therapy; Z87.891 Personal history of nicotine dependence
CPT/HCPCS: 88305; 45380; J2001; J2704

== ENCOUNTER → 2017-12-17 | Outpatient (CLI) | payer MEDICARE ==
[2017-12-17 13:23] LABS: Albumin 4.3 g/dL (3.5-5.0); Calcium 9.4 mg/dL (8.4-10.2); Potassium 5.1 mmol/L (3.5-5.1); Total Bilirubin 0.5 mg/dL (0.2-1.3); Total Protein 6.7 g/dL (6.3-8.2)
== END | disposition home or self-care (01) ==
LOC: LABWHC1 12:23
PROVIDERS: ATTEND Internal Medicine Nephrology
DX: E78.5 Hyperlipidemia, unspecified (principal)
CPT/HCPCS: 36415; 80053

== ENCOUNTER → 2018-04-05 | Outpatient (CLI) | payer MEDICARE ==
[2018-04-05 16:35] LABS: Basophils % (A) 1 %; Eosinophils # (A) 0.2 k/uL (0-0.7); Eosinophils % (A) 6 %; HCT 40.9 % (39.0-53.0); HGB 13.6 gm/dL (13.0-17.5); Lymphocytes # (A) 0.9 k/uL (1.0-4.8); Lymphocytes % (A) 28 %; MCH 32.4 pg (25.0-35.0); MCHC 33.2 g/dL (31.0-37.0); MCV 97.5 fL (80.0-100.0); Mean Platelet Volume 8.4; Monocytes # (A) 0.2 k/uL (0-1.0); Monocytes % (A) 7 %; Neutrophils # (A) 1.8 k/uL (1.3-7.7); Neutrophils % (A) 55 %; Platelet Count 140 k/uL (150-450); RBC 4.19 m/uL (4.30-5.90); RDW 13.2 % (11.5-15.5); WBC 3.2 k/uL (3.8-10.6)
[2018-04-05 16:44] LABS: Albumin 4.2 g/dL (3.5-5.0); Calcium 9.9 mg/dL (8.4-10.2); Magnesium 2.2 mg/dL (1.6-2.3); Phosphorus 3.6 mg/dL (2.5-4.5); Potassium 4.8 mmol/L (3.5-5.1); Total Bilirubin 0.5 mg/dL (0.2-1.3); Total Protein 6.9 g/dL (6.3-8.2); Uric Acid 8.8 mg/dL (3.5-8.5)
[2018-04-05 18:00] LABS: Appearance,Urine Clear (Clear); Bilirubin,Urine Negative (Negative); Blood,Urine Negative (Negative); Color,Urine Yellow; Glucose,Urine (UA) Negative (Negative); Ketones,Urine 1+ (Negative); Leukocyte Esterase,Urine Negative (Negative); Nitrite,Urine Negative (Negative); Protein,Urine Negative (Negative); Urobilinogen,Urine <2.0 mg/dL (<2.0)
[2018-04-06 03:26] LABS: Iron Saturation 16.92 (15.00-50.00)
[2018-04-06 03:35] LABS: Vitamin D 25 Hydroxy 35.4 ng/mL (30.0-100.0)
[2018-04-06 03:43] LABS: Parathyroid Hormone Intact 39.9 pg/mL (14.0-72.0)
== END ==
LOC: LABWHC1 15:32
PROVIDERS: ATTEND Internal Medicine Nephrology
DX: E55.9 Vitamin D deficiency, unspecified (principal); D63.1 Anemia in chronic kidney disease; N18.3 Chronic kidney disease, stage 3 (moderate); E78.5 Hyperlipidemia, unspecified; N25.81 Secondary hyperparathyroidism of renal origin; M10.9 Gout, unspecified; N39.0 Urinary tract infection, site not specified
CPT/HCPCS: 36415; 80053; 81003; 82306; 82728; 83540; 83550; 83735; 83970; 84100; 84550; 85025

== ENCOUNTER → 2018-05-24 | Outpatient (CLI) | payer MEDICARE ==
[~2018-05-24] MED LIST changes: +COSYNTROPIN 0.25 MG VIAL IVP ONE; -LACTATED RINGERS 1,000 ML IV SCH
[2018-05-24 12:02] VITALS: BP 136/64; PULSE 66; RESP 16; TEMP 97.5
== END | disposition home or self-care (01) ==
LOC: PROCWHC3 09:40
PROVIDERS: ATTEND Family Medicine
DX: R53.83 Other fatigue (principal)
CPT/HCPCS: 82533; 82024; 36415; J0834

== ENCOUNTER → 2018-05-27 | Outpatient (CLI) | payer MEDICARE ==
--- NOTE | 2018-05-30 07:21 | USB ---
Reason for exam: clinical finding. Indicated problem(s): palpable abnormality in the right breast. Physical Findings: Nurse Summary: 1.25cm movable lesion (nurse dw). US Breast RT Right complete breast ultrasound includes all four quadrants, the retroareolar region and axilla. Finding demonstrates a 2.0 x 0.8 x 1.7cm irregular, solid, hypoechoic lesion at the posterior nipple, appears as gynecomastia however mammogram will be performed to correlate. These results were verbally communicated with the patient and result sheet given to the patient on 05/27/18. ASSESSMENT: Incomplete: need additional imaging evaluation, BI-RAD 0 RECOMMENDATION: Special view mammogram of both breasts.
--- NOTE | 2018-05-30 07:23 | MM ---
Reason for exam: additional evaluation requested from abnormal screening. MG Diagnostic Mammo w CAD ERIN Bilateral CC and MLO view(s) were taken. XCCL view(s) were taken of the right breast. There are benign appearing skin calcifications bilaterally. Bilateral retroareolar breast tissue greater in the right breast contiguous with the nipple. These results were verbally communicated with the patient and result sheet given to the patient on 05/27/18. ASSESSMENT: Benign, BI-RAD 2 RECOMMENDATION: Clinical management of both breasts. Findings compatible with right greater than left gynecomastia.
== END | disposition home or self-care (01) ==
LOC: RADUSWWP 13:57
PROVIDERS: ATTEND Family Medicine
DX: N64.4 Mastodynia (principal); R92.8 Other abnormal and inconclusive findings on diagnostic imaging of breast
CPT/HCPCS: 77066

== ENCOUNTER → 2018-08-31 | Outpatient (CLI) | payer MEDICARE ==
[2018-08-31 16:52] LABS: Appearance,Urine Clear (Clear); Bilirubin,Urine Negative (Negative); Blood,Urine Negative (Negative); Color,Urine Yellow; Glucose,Urine (UA) Negative (Negative); Ketones,Urine Negative (Negative); Leukocyte Esterase,Urine Negative (Negative); Nitrite,Urine Negative (Negative); PH, Urine 6.5 (5.0-8.0); Protein,Urine Negative (Negative); Urobilinogen,Urine <2.0 mg/dL (<2.0)
[2018-08-31 16:53] LABS: Basophils % (A) 1 %; Eosinophils # (A) 0.2 k/uL (0-0.7); Eosinophils % (A) 5 %; HCT 41.3 % (39.0-53.0); Lymphocytes # (A) 1.2 k/uL (1.0-4.8); Lymphocytes % (A) 31 %; MCHC 31.6 g/dL (31.0-37.0); MCV 98.2 fL (80.0-100.0); Mean Platelet Volume 9.2; Monocytes # (A) 0.2 k/uL (0-1.0); Monocytes % (A) 6 %; Neutrophils # (A) 2.2 k/uL (1.3-7.7); Neutrophils % (A) 56 %; Platelet Count 115 k/uL (150-450); RDW 13.6 % (11.5-15.5); WBC 3.9 k/uL (3.8-10.6)
[2018-08-31 22:57] LABS: Anion Gap 4.5 mmol/L (4.00-12.00); Calcium 9.4 mg/dL (8.7-10.3); Carbon Dioxide 30.5 mmol/L (21.6-31.8); LDL Cholesterol,Calculated 50.4 mg/dL (0.0-131.0); Magnesium 2.1 mg/dL (1.5-2.4); Potassium 4.5 mmol/L (3.5-5.5); Uric Acid 7.6 mg/dL (3.7-8.7); VLDL Calculation 33.6 mg/dL (5.00-40.00)
[2018-09-01 00:21] LABS: Parathyroid Hormone Intact 65.6 pg/mL (14.0-72.0)
[2018-09-01 00:24] LABS: Creatinine,Urine Random 69.4 mg/dL; Total Protein,Urine Random 4.6 mg/dL (0.0-13.5)
[2018-09-01 00:52] LABS: Iron Saturation 23.55 (15.00-50.00)
[2018-09-01 01:00] LABS: Vitamin D 25 Hydroxy 40.3 ng/mL (30.0-100.0)
== END | disposition home or self-care (01) ==
LOC: LABWHC1 16:04
PROVIDERS: ATTEND Nurse Practitioner Family
DX: N18.3 Chronic kidney disease, stage 3 (moderate) (principal); E78.5 Hyperlipidemia, unspecified; D63.1 Anemia in chronic kidney disease; E55.9 Vitamin D deficiency, unspecified; E21.3 Hyperparathyroidism, unspecified; M10.9 Gout, unspecified; N39.0 Urinary tract infection, site not specified; R80.9 Proteinuria, unspecified
CPT/HCPCS: 36415; 80048; 80061; 81003; 82306; 82570; 82728; 83540; 83550; 83735; 83970; 84100; 84156; 84443; 84550; 85025

== ENCOUNTER → 2019-03-18 | Outpatient (CLI) | payer MEDICARE ==
[2019-03-18 09:57] LABS: Basophils % (A) 1 %; Eosinophils # (A) 0.2 k/uL (0-0.7); Eosinophils % (A) 7 %; HCT 42.1 % (39.0-53.0); HGB 14.5 gm/dL (13.0-17.5); Lymphocytes % (A) 31 %; MCHC 34.4 g/dL (31.0-37.0); MCV 93.1 fL (80.0-100.0); Mean Platelet Volume 7.1; Monocytes # (A) 0.2 k/uL (0-1.0); Monocytes % (A) 7 %; Neutrophils # (A) 1.7 k/uL (1.3-7.7); Neutrophils % (A) 51 %; Platelet Count 115 k/uL (150-450); RBC 4.52 m/uL (4.30-5.90); RDW 13.6 % (11.5-15.5); WBC 3.3 k/uL (3.8-10.6)
[2019-03-18 16:59] LABS: Iron Saturation 22.26 (15.00-50.00)
[2019-03-18 17:02] LABS: African American GFR (CKD) 52.8 (60.0-200.0); Albumin 4.4 g/dL (3.80-4.90); Albumin/Globulin Ratio 2.1 (1.60-3.17); Anion Gap 11.8 mmol/L (4.00-12.00); BUN/Creat Ratio 17.33 Ratio (12.00-20.00); Calcium 9.6 mg/dL (8.7-10.3); Carbon Dioxide 25.2 mmol/L (21.6-31.8); Chol/HDL Ratio 2.42; Globulin 2.1 g/dL (1.6-3.3); LDL Cholesterol,Calculated 40.8 mg/dL (0.0-131.0); Potassium 4.1 mmol/L (3.5-5.5); Total Bilirubin 0.5 mg/dL (0.2-1.2); Total Protein 6.5 g/dL (6.2-8.2); Uric Acid 6.7 mg/dL (3.7-8.7); VLDL Calculation 37.2 mg/dL (5.00-40.00)
[2019-03-18 17:07] LABS: Ferritin 93.7 ng/mL (22.0-322.0)
== END | disposition home or self-care (01) ==
LOC: LABWHC1 09:26
PROVIDERS: ATTEND Nurse Practitioner Family
DX: Z12.5 Encounter for screening for malignant neoplasm of prostate (principal); Z00.01 Encounter for general adult medical examination with abnormal findings; I13.10 Hypertensive heart and chronic kidney disease without heart failure, with stage 1 through stage 4 chronic kidney disease, or unspecified chronic kidney disease; N18.3 Chronic kidney disease, stage 3 (moderate); D63.1 Anemia in chronic kidney disease; M10.9 Gout, unspecified; Q63.8 Other specified congenital malformations of kidney; E78.2 Mixed hyperlipidemia; D72.818 Other decreased white blood cell count
CPT/HCPCS: 36415; 80053; 80061; 82728; 83540; 83550; 84153; 84550; 85025

== ENCOUNTER → 2019-05-01 | Outpatient (CLI) | payer MEDICARE ==
[2019-05-02 01:49] LABS: African American GFR (CKD) 35.1 (60.0-200.0); Anion Gap 9.8 mmol/L (4.00-12.00); BUN/Creat Ratio 26.19 Ratio (12.00-20.00); Calcium 8.9 mg/dL (8.7-10.3); Carbon Dioxide 24.2 mmol/L (21.6-31.8); Potassium 4.7 mmol/L (3.5-5.5)
== END ==
LOC: LABWHC1 15:05
PROVIDERS: ATTEND Nurse Practitioner Family
DX: N18.3 Chronic kidney disease, stage 3 (moderate) (principal)
CPT/HCPCS: 36415; 80048

== ENCOUNTER → 2019-11-08 | Outpatient (CLI) | payer MEDICARE ==
[2019-11-08 13:17] LABS: Basophils % (A) 1 %; Eosinophils # (A) 0.2 k/uL (0-0.7); Eosinophils % (A) 6 %; Lymphocytes # (A) 0.9 k/uL (1.0-4.8); Lymphocytes % (A) 26 %; MCH 32.4 pg (25.0-35.0); MCHC 32.6 g/dL (31.0-37.0); MCV 99.5 fL (80.0-100.0); Mean Platelet Volume 8.8; Monocytes # (A) 0.3 k/uL (0-1.0); Monocytes % (A) 7 %; Neutrophils # (A) 2.1 k/uL (1.3-7.7); Neutrophils % (A) 58 %; Platelet Count 101 k/uL (150-450); RBC 4.32 m/uL (4.30-5.90); RDW 13.6 % (11.5-15.5); WBC 3.6 k/uL (3.8-10.6)
[2019-11-08 19:04] LABS: Ferritin 82.9 ng/mL (22.0-322.0)
[2019-11-08 20:03] LABS: % Iron Saturation 18.46 (15.00-50.00); African American GFR (CKD) 29.9 (60.0-200.0); Anion Gap 10.1 mmol/L (4.00-12.00); BUN/Creat Ratio 23.75 Ratio (12.00-20.00); Calcium 9.4 mg/dL (8.7-10.3); Carbon Dioxide 31.9 mmol/L (21.6-31.8); Magnesium 1.8 mg/dL (1.5-2.4); Non-African American GFR(CKD) 25.8 (60.0-200.0); Phosphorus 3.1 mg/dL (2.4-5.1); Uric Acid 7.8 mg/dL (3.7-8.7)
== END | disposition home or self-care (01) ==
LOC: LABWHC1 12:01
PROVIDERS: ATTEND Internal Medicine Nephrology
DX: N18.3 Chronic kidney disease, stage 3 (moderate) (principal); D63.1 Anemia in chronic kidney disease; M10.9 Gout, unspecified; N25.81 Secondary hyperparathyroidism of renal origin; E55.9 Vitamin D deficiency, unspecified
CPT/HCPCS: 36415; 80048; 82043; 82306; 82570; 82728; 83540; 83550; 83735; 83970; 84100; 84550; 85025

== ENCOUNTER → 2019-11-29 | Outpatient (CLI) | payer MEDICARE ==
[2019-11-29 11:04] LABS: Basophils % (A) 1 %; Eosinophils # (A) 0.2 k/uL (0-0.7); Eosinophils % (A) 7 %; HCT 41.7 % (39.0-53.0); Lymphocytes # (A) 1.1 k/uL (1.0-4.8); Lymphocytes % (A) 34 %; MCH 33.1 pg (25.0-35.0); MCHC 33.5 g/dL (31.0-37.0); MCV 98.7 fL (80.0-100.0); Mean Platelet Volume 8.2; Monocytes # (A) 0.2 k/uL (0-1.0); Monocytes % (A) 6 %; Neutrophils # (A) 1.6 k/uL (1.3-7.7); Neutrophils % (A) 49 %; Platelet Count 106 k/uL (150-450); RBC 4.23 m/uL (4.30-5.90); RDW 13.8 % (11.5-15.5); WBC 3.3 k/uL (3.8-10.6)
[2019-11-29 11:14] LABS: Appearance,Urine Clear (Clear); Bilirubin,Urine Negative (Negative); Blood,Urine Negative (Negative); Color,Urine Light Yellow; Glucose,Urine (UA) Negative (Negative); Ketones,Urine Negative (Negative); Leukocyte Esterase,Urine Negative (Negative); Nitrite,Urine Negative (Negative); PH, Urine 5.5 (5.0-8.0); Protein,Urine Negative (Negative); Specific Gravity,Urine 1.005 (1.001-1.035); Urobilinogen,Urine <2.0 mg/dL (<2.0)
[2019-11-29 15:35] LABS: Protein/Creatinine Ratio,Urine 0.342
[2019-11-29 17:40] LABS: Ferritin 104.4 ng/mL (22.0-322.0)
[2019-11-29 17:43] LABS: % Iron Saturation 27.76 (15.00-50.00); African American GFR (CKD) 35.1 (60.0-200.0); Albumin 4.4 g/dL (3.80-4.90); Anion Gap 9.3 mmol/L (4.00-12.00); BUN/Creat Ratio 18.57 Ratio (12.00-20.00); Calcium 9.5 mg/dL (8.7-10.3); Carbon Dioxide 26.7 mmol/L (21.6-31.8); Non-African American GFR(CKD) 30.3 (60.0-200.0); Phosphorus 3.5 mg/dL (2.4-5.1); Potassium 4.8 mmol/L (3.5-5.5); Uric Acid 7.6 mg/dL (3.7-8.7)
== END | disposition home or self-care (01) ==
LOC: LABWHC1 09:43
PROVIDERS: ATTEND Internal Medicine Nephrology
DX: N18.3 Chronic kidney disease, stage 3 (moderate) (principal); D63.1 Anemia in chronic kidney disease; E21.3 Hyperparathyroidism, unspecified; E55.9 Vitamin D deficiency, unspecified; M10.9 Gout, unspecified; N39.0 Urinary tract infection, site not specified; R50.9 Fever, unspecified
CPT/HCPCS: 36415; 80048; 81003; 82040; 82306; 82570; 82728; 83540; 83550; 83735; 83970; 84100; 84156; 84550; 85025

== ENCOUNTER → 2020-02-05 | Outpatient (CLI) | payer MEDICARE ==
[2020-02-05 12:04] LABS: Basophils % (A) 1 %; Eosinophils # (A) 0.2 k/uL (0-0.7); Eosinophils % (A) 6 %; HCT 41.9 % (39.0-53.0); HGB 13.4 gm/dL (13.0-17.5); Lymphocytes # (A) 0.8 k/uL (1.0-4.8); Lymphocytes % (A) 27 %; MCH 31.7 pg (25.0-35.0); MCHC 31.8 g/dL (31.0-37.0); MCV 99.5 fL (80.0-100.0); Monocytes # (A) 0.2 k/uL (0-1.0); Monocytes % (A) 7 %; Neutrophils # (A) 1.6 k/uL (1.3-7.7); Neutrophils % (A) 56 %; RBC 4.22 m/uL (4.30-5.90); RDW 13.6 % (11.5-15.5); WBC 2.9 k/uL (3.8-10.6)
[2020-02-05 12:10] LABS: Creatinine,Urine Random 121.4 mg/dL; Protein/Creatinine Ratio,Urine 0.115
[2020-02-05 12:13] LABS: Color,Urine Yellow
[2020-02-05 12:14] LABS: Appearance,Urine Clear (Clear); Bilirubin,Urine Negative (Negative); Blood,Urine Negative (Negative); Glucose,Urine (UA) Negative (Negative); Ketones,Urine Negative (Negative); Leukocyte Esterase,Urine Negative (Negative); Nitrite,Urine Negative (Negative); Protein,Urine Negative (Negative); Specific Gravity,Urine 1.015 (1.001-1.035); Urobilinogen,Urine <2.0 mg/dL (<2.0)
[2020-02-05 12:38] LABS: Platelet Count 91 k/uL (150-450)
[2020-02-05 16:43] LABS: Ferritin 121.1 ng/mL (22.0-322.0)
[2020-02-05 16:50] LABS: Albumin 4.3 g/dL (3.80-4.90); Magnesium 2.1 mg/dL (1.5-2.4); Phosphorus 2.4 mg/dL (2.4-5.1); Uric Acid 8.8 mg/dL (3.7-8.7)
[2020-02-05 16:51] LABS: % Iron Saturation 22.19 (15.00-50.00); African American GFR (CKD) 39.7 (60.0-200.0); Anion Gap 6.7 mmol/L (4.00-12.00); BUN/Creat Ratio 26.84 Ratio (12.00-20.00); Calcium 9.4 mg/dL (8.7-10.3); Carbon Dioxide 26.3 mmol/L (21.6-31.8); Non-African American GFR(CKD) 34.2 (60.0-200.0); Potassium 4.6 mmol/L (3.5-5.5)
== END | disposition home or self-care (01) ==
LOC: LABWHC1 10:46
PROVIDERS: ATTEND Internal Medicine Nephrology
DX: E55.9 Vitamin D deficiency, unspecified (principal); N25.81 Secondary hyperparathyroidism of renal origin; M10.9 Gout, unspecified; N39.0 Urinary tract infection, site not specified; R80.9 Proteinuria, unspecified; D63.1 Anemia in chronic kidney disease; N18.3 Chronic kidney disease, stage 3 (moderate)
CPT/HCPCS: 36415; 80048; 81003; 82040; 82306; 82570; 82728; 83540; 83550; 83735; 83970; 84100; 84156; 84550; 85025

== ENCOUNTER → 2020-03-22 | Outpatient (CLI) | payer MEDICARE ==
[2020-03-22 14:37] LABS: Appearance,Urine Clear (Clear); Bilirubin,Urine Negative (Negative); Blood,Urine Negative (Negative); Color,Urine Light Yellow; Glucose,Urine (UA) Negative (Negative); Ketones,Urine Negative (Negative); Leukocyte Esterase,Urine Negative (Negative); Nitrite,Urine Negative (Negative); PH, Urine 6.5 (5.0-8.0); Protein,Urine Negative (Negative); Specific Gravity,Urine 1.008 (1.001-1.035); Urobilinogen,Urine <2.0 mg/dL (<2.0)
[2020-03-22 14:43] LABS: Basophils # (A) 0.1 k/uL (0-0.2); Basophils % (A) 2 %; Eosinophils # (A) 0.2 k/uL (0-0.7); Eosinophils % (A) 7 %; HCT 43.9 % (39.0-53.0); HGB 14.2 gm/dL (13.0-17.5); Lymphocytes # (A) 0.9 k/uL (1.0-4.8); Lymphocytes % (A) 26 %; MCH 31.8 pg (25.0-35.0); MCHC 32.3 g/dL (31.0-37.0); MCV 98.4 fL (80.0-100.0); Mean Platelet Volume 7.9; Monocytes # (A) 0.3 k/uL (0-1.0); Monocytes % (A) 7 %; Neutrophils # (A) 2.1 k/uL (1.3-7.7); Neutrophils % (A) 57 %; Platelet Count 108 k/uL (150-450); RBC 4.47 m/uL (4.30-5.90); RDW 13.4 % (11.5-15.5); WBC 3.6 k/uL (3.8-10.6)
[2020-03-22 15:20] LABS: Protein/Creatinine Ratio,Urine 0.507
[2020-03-22 22:17] LABS: Ferritin 106.4 ng/mL (22.0-322.0)
[2020-03-22 22:23] LABS: % Iron Saturation 36.76 (15.00-50.00); Albumin 4.4 g/dL (3.80-4.90); BUN/Creat Ratio 24.12 Ratio (12.00-20.00); Non-African American GFR(CKD) 38.9 (60.0-200.0); Phosphorus 3.2 mg/dL (2.4-5.1); Potassium 4.7 mmol/L (3.5-5.5); Uric Acid 6.9 mg/dL (3.7-8.7)
== END | disposition home or self-care (01) ==
LOC: LABWHC1 13:21
PROVIDERS: ATTEND Internal Medicine Nephrology
DX: E55.9 Vitamin D deficiency, unspecified (principal); E21.3 Hyperparathyroidism, unspecified; D63.1 Anemia in chronic kidney disease; N18.30 Chronic kidney disease, stage 3 unspecified; M10.9 Gout, unspecified; N39.0 Urinary tract infection, site not specified
CPT/HCPCS: 36415; 80048; 81003; 82040; 82306; 82570; 82728; 83540; 83550; 83735; 83970; 84100; 84156; 84550; 85025

== ENCOUNTER → 2020-05-13 | Outpatient (CLI) | payer MEDICARE ==
[2020-05-13 15:35] LABS: Basophils % (A) 1 %; Eosinophils # (A) 0.1 k/uL (0-0.7); Eosinophils % (A) 3 %; HCT 43.7 % (39.0-53.0); HGB 14.7 gm/dL (13.0-17.5); Lymphocytes # (A) 0.8 k/uL (1.0-4.8); Lymphocytes % (A) 21 %; MCH 33.2 pg (25.0-35.0); MCHC 33.6 g/dL (31.0-37.0); MCV 98.9 fL (80.0-100.0); Mean Platelet Volume 8.4; Monocytes # (A) 0.2 k/uL (0-1.0); Monocytes % (A) 5 %; Neutrophils # (A) 2.7 k/uL (1.3-7.7); Neutrophils % (A) 68 %; Platelet Count 102 k/uL (150-450); RBC 4.41 m/uL (4.30-5.90); RDW 12.9 % (11.5-15.5); WBC 3.9 k/uL (3.8-10.6)
[2020-05-13 16:39] LABS: Erythrocyte Sedimentation Rate 19 mm/hr (0-15)
[2020-05-14 00:09] LABS: ALT 60 U/L (10-49); AST 60 U/L (14-35); Albumin/Globulin Ratio 1.96 (1.60-3.17); Alkaline Phosphatase 92 U/L (41-126); BUN/Creat Ratio 29.44 Ratio (12.00-20.00); C Reactive Protein <0.4 mg/dL (0.0-0.8); Calcium 10.1 mg/dL (8.7-10.3); Carbon Dioxide 30.6 mmol/L (21.6-31.8); Chloride 105 mmol/L (96-109); Globulin 2.4 g/dL (1.6-3.3); Glucose 96 mg/dL (70-110); Non-African American GFR(CKD) 36.3 (60.0-200.0); Potassium 4.4 mmol/L (3.5-5.5); Rheumatoid Factor, Qnt 10 IU/mL (0-15); Sodium 146 mmol/L (135-145); Total Bilirubin 0.6 mg/dL (0.3-1.2); Total Protein 7.1 g/dL (6.2-8.2); Uric Acid 8.9 mg/dL (3.7-8.7)
[2020-05-14 12:11] LABS: HLA B27 NEGATIVE
== END | disposition home or self-care (01) ==
LOC: LABWHC1 14:45
PROVIDERS: ATTEND Family Medicine
DX: M51.16 Intervertebral disc disorders with radiculopathy, lumbar region (principal); M10.9 Gout, unspecified; M54.5 Low back pain; N18.30 Chronic kidney disease, stage 3 unspecified; I12.9 Hypertensive chronic kidney disease with stage 1 through stage 4 chronic kidney disease, or unspecified chronic kidney disease; Q60.0 Renal agenesis, unilateral; D72.818 Other decreased white blood cell count
CPT/HCPCS: 36415; 80053; 84550; 85025; 85652; 86038; 86140; 86431; 86812

== ENCOUNTER → 2020-08-12 | Outpatient (CLI) | payer MEDICARE ==
[2020-08-12 11:31] LABS: Appearance,Urine Clear (Clear); Bilirubin,Urine Negative (Negative); Blood,Urine Negative (Negative); Color,Urine Light Yellow; Glucose,Urine (UA) Negative (Negative); Ketones,Urine Negative (Negative); Leukocyte Esterase,Urine Negative (Negative); Nitrite,Urine Negative (Negative); PH, Urine 5.5 (5.0-8.0); Protein,Urine Negative (Negative); Specific Gravity,Urine 1.006 (1.001-1.035); Urobilinogen,Urine <2.0 mg/dL (<2.0)
[2020-08-12 11:43] LABS: Creatinine,Urine Random 70.9 mg/dL; Protein/Creatinine Ratio,Urine 0.197
[2020-08-12 15:14] LABS: Basophils # (A) 0.03 X 10*3/uL (0.00-0.10); Basophils % (A) 0.9 %; Eosinophils # (A) 0.26 X 10*3/uL (0.04-0.35); Eosinophils % (A) 7.7 %; HCT 34.9 % (39.6-50.0); HGB 11.9 g/dL (13.0-17.0); Lymphocytes # (A) 1.34 X 10*3/uL (0.90-5.00); Lymphocytes % (A) 39.9 %; MCH 33.5 pg (27.0-32.0); MCHC 34.1 g/dL (32.0-37.0); MCV 98.3 fL (80.0-97.0); Mean Platelet Volume 10.9 fL (9.5-12.2); Monocytes # (A) 0.24 X 10*3/uL (0.20-1.00); Monocytes % (A) 7.1 %; Neutrophils # (A) 1.47 X 10*3/uL (1.80-7.70); Neutrophils % (A) 43.8 %; Platelet Count 118 X 10*3/uL (140-440); RBC 3.55 X 10*6/uL (4.40-5.60); RDW 13.8 % (11.5-14.5); WBC 3.36 X 10*3/uL (4.50-10.00)
[2020-08-12 15:42] LABS: % Iron Saturation 35.4 (15.00-50.00); African American GFR (CKD) 28.3 (60.0-200.0); Albumin 4.2 g/dL (3.80-4.90); Anion Gap 8.4 mmol/L (4.00-12.00); Calcium 8.9 mg/dL (8.7-10.3); Carbon Dioxide 26.6 mmol/L (21.6-31.8); Magnesium 1.8 mg/dL (1.5-2.4); Non-African American GFR(CKD) 24.4 (60.0-200.0); Phosphorus 3.6 mg/dL (2.4-5.1); Potassium 3.7 mmol/L (3.5-5.5); Uric Acid 8.4 mg/dL (3.7-8.7)
[2020-08-12 15:50] LABS: Ferritin 109.7 ng/mL (22.0-322.0)
== END | disposition home or self-care (01) ==
LOC: LABWHC1 10:25
PROVIDERS: ATTEND Nurse Practitioner Family
DX: E55.9 Vitamin D deficiency, unspecified (principal); E21.3 Hyperparathyroidism, unspecified; D63.1 Anemia in chronic kidney disease; M10.9 Gout, unspecified; N39.0 Urinary tract infection, site not specified; N18.30 Chronic kidney disease, stage 3 unspecified; R80.9 Proteinuria, unspecified
CPT/HCPCS: 36415; 80048; 81003; 82040; 82306; 82570; 82728; 83540; 83550; 83735; 83970; 84100; 84156; 84550; 85025

== ENCOUNTER → 2020-10-17 | Outpatient (CLI) | payer MEDICARE ==
--- NOTE | 2020-10-18 07:55 | US ---
EXAMINATION TYPE: US kidneys/renal and bladder DATE OF EXAM: 10/17/2020 COMPARISON: 09/02/2016 CLINICAL HISTORY: N18.3 Chronic kidney disease stage III. Per previous exams, left kidney not visuali zed. Hx renal cysts. No pain her patient. EXAM MEASUREMENTS: Right Kidney: 14.4 x 5.3 x 7.1 cm Right Kidney: Multiple cysts seen throughout kidney. Largest measured. Largest upper pole = 5.4 x 5 .4 x 4.7 cm. Largest lower pole = 4.7 x 3.7 x 3.6 cm. Left Kidney: Not visualized. Left pelvis scanned. Bladder: Distended. Two bladder pouches seen. 1= 1.9 x 1.4 cm. 2- 1.8 x 1.4 cm. Bilateral Jets not seen There is no evidence for hydronephrosis at this point in time. No nephrolithiasis is seen. The urin louie bladder is anechoic. Bilateral ureteral jets are seen. IMPRESSION: 1. Renal cystic changes. 2. Urinary bladder diverticula. 3. Nonvisualization of the left kidney.
== END | disposition home or self-care (01) ==
LOC: RADUSWWP 15:34
PROVIDERS: ATTEND Family Medicine
DX: N18.30 Chronic kidney disease, stage 3 unspecified (principal); N32.3 Diverticulum of bladder; N28.1 Cyst of kidney, acquired
CPT/HCPCS: 76770

== ENCOUNTER → 2021-09-20 | Outpatient (CLI) | payer MEDICARE ==
[2021-09-20 09:25] LABS: Creatinine,Urine Random 69.7 mg/dL; Protein/Creatinine Ratio,Urine 0.158
[2021-09-20 12:32] LABS: Albumin 4.3 g/dL (3.8-4.9)
[2021-09-20 12:54] LABS: Appearance,Urine Clear (Clear); Bilirubin,Urine Negative (Negative); Blood,Urine Negative (Negative); Color,Urine Yellow (Yellow); Ketones,Urine Negative (Negative); Nitrite,Urine Negative (Negative); PH, Urine 6.5 (5.0-8.0); Specific Gravity,Urine 1.011 (1.001-1.030); Urobilinogen,Urine 0.2 (0.2,1.0)
[2021-09-20 12:55] LABS: Basophils # (A) 0.02 X 10*3/uL (0.00-0.10); Basophils % (A) 0.5 %; Eosinophils # (A) 0.23 X 10*3/uL (0.04-0.35); Eosinophils % (A) 5.5 %; HCT 41.4 % (39.6-50.0); HGB 13.1 g/dL (13.0-17.0); Immature Grans, Automated 0.2 %; Lymphocytes # (A) 0.91 X 10*3/uL (0.90-5.00); Lymphocytes % (A) 21.7 %; MCHC 31.6 g/dL (32.0-37.0); Mean Platelet Volume 11.9 fL (9.5-12.2); Monocytes # (A) 0.46 X 10*3/uL (0.20-1.00); NRBC Per 100 WBC 0 /100 WBCS (0.0-0.0); Neutrophils # (A) 2.57 X 10*3/uL (1.80-7.70); Neutrophils % (A) 61.1 %; Platelet Count 93 X 10*3/uL (140-440); RDW 12.8 % (11.5-14.5)
[2021-09-20 18:10] LABS: % Iron Saturation 13.83 (15.00-50.00); African American GFR (CKD) 36.1 (60.0-200.0); Anion Gap 20.3 mmol/L (10.00-18.00); BUN/Creat Ratio 26.95 Ratio (12.00-20.00); Blood Urea Nitrogen 54.7 mg/dL (9.0-27.0); Calcium 9.5 mg/dL (8.7-10.3); Carbon Dioxide 20.5 mmol/L (20.0-27.5); Magnesium 2.2 mg/dL (1.5-2.4); Non-African American GFR(CKD) 31.1 (60.0-200.0); Phosphorus 3.1 mg/dL (2.4-5.1); Potassium 4.7 mmol/L (3.5-5.5); Uric Acid 7.3 mg/dL (3.7-8.7)
== END | disposition home or self-care (01) ==
LOC: LABWHC1 08:19
PROVIDERS: ATTEND Nurse Practitioner Family
DX: N25.81 Secondary hyperparathyroidism of renal origin (principal); E55.9 Vitamin D deficiency, unspecified; M10.9 Gout, unspecified; N39.0 Urinary tract infection, site not specified; D64.9 Anemia, unspecified; R80.9 Proteinuria, unspecified; N18.30 Chronic kidney disease, stage 3 unspecified
CPT/HCPCS: 36415; 80048; 81003; 82040; 82306; 82570; 83540; 83550; 83735; 83970; 84100; 84156; 84550; 85025

== ENCOUNTER 2021-12-16 09:55 | Emergency (ER) | payer MEDICARE ==
[2021-12-16 10:06] VITALS: TEMP 98.6
[2021-12-16] MEDS ORDERED: HYDROcodone/APAP 5-325MG 1 EACH TAB PO STA (10:55)
--- NOTE | 2021-12-16 10:57 | XR ---
EXAMINATION TYPE: XR ankle complete 3 views RT, XR foot complete 3 views RT DATE OF EXAM: 12/16/2021 COMPARISON: NONE HISTORY: 76-year-old male pain and swelling. FINDINGS: Ankle: Mild degenerative change at the tibiotalar joint. There is circumferential soft tissue swelling as we ll as underlying ankle joint effusion. Subtalar joint is aligned. Small delineation to the Achilles t endon. Ankle mortise is congruent. Preservation of the distal tibiofibular overlap. Talar dome is int act. Foot: Moderate degenerative change first MTP joint with bunion formation. Hammertoes. Mild dorsal forefoot soft tissue swelling. Small plantar heel spur. Os peroneum. No acute fracture, subluxation, or disloc ation. IMPRESSION: 1. Ankle: Mild tibiotalar joint OA. Circumferential soft tissue swelling and underlying ankle joint e ffusion or synovitis. If no injury or established diagnosis, consider rheumatology referral. No acute osseous abnormality seen. 2. Foot: Some dorsal forefoot soft tissue swelling. Moderate first MTP joint OA along with hammertoes . Small plantar heel spur. No acute osseous abnormality seen.
--- NOTE | 2021-12-16 10:59 | ED ---
Extremity Problem HPI - General Chief complaint: Extremity Injury, Lower Stated complaint: right foot pain, swelling Time Seen by Provider: 12/16/21 10:16 Source: patient, family, RN notes reviewed Mode of arrival: ambulatory Limitations: no limitations - History of Present Illness Initial comments: This is a 76-year-old male who presents to the emergency department for pain and swelling to the right foot and ankle. He believes that he first noticed this 3 days ago. Unsure if this started in the foot or the ankle, however it has not improved. He is unable to walk at this point due to the pain. Denies any known injury or history of blood clots. He does not take any blood thinners. States that this is also very painful to touch and if he tries to put shoes on or take them off. He has never experienced anything like this before. 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 Denies any fevers, chills, sore throat, cough, dyspnea, chest pain, palpitations, abdominal pain, nausea, vomiting, diarrhea, back pain, or headaches. MD Complaint: extremity pain, extremity swelling Onset/Timin -: days(s) Location: right, lower extremity History of Same: No Associated Symptoms: denies other symptoms - Related Data Home Medications Medication Instructions Recorded Confirmed Aspirin 81 mg PO DAILY 10/09/14 12/16/21 Atorvastatin [Lipitor] 10 mg PO DAILY 11/30/17 12/16/21 Furosemide [Lasix] 40 mg PO BID 11/30/17 12/16/21 Verapamil Sr [Isoptin Sr] 180 mg PO BID 11/30/17 12/16/21 allopurinoL [Zyloprim] 100 mg PO DAILY 11/30/17 12/16/21 Fluticasone Nasal [place] [Flonase 1 spray EA NOSTRIL DAILY 12/16/21 12/16/21 Nasal [place]] Loratadine [Claritin] 10 mg PO DAILY 12/16/21 12/16/21 Losartan [Cozaar] 50 mg PO DAILY 12/16/21 12/16/21 Multivitamins, Thera [Multivitamin 1 tab PO DAILY 12/16/21 12/16/21 (formulary)] traMADol HCL 50 mg PO TID PRN 12/16/21 12/16/21 Previous Rx's Medication Instructions Recorded methylPREDNISolone Dose Pack 4 mg PO DIRECTED #21 tab 12/16/21 [Medrol Dose Pack] Allergies Allergy/AdvReac Type Severity Reaction Status Date / Time No Known Allergies Allergy Verified 12/16/21 11:31 Review of Systems ROS Statement: Those systems with pertinent positive or pertinent negative responses have been documented in the HPI. ROS Other: All systems not noted in ROS Statement are negative. Past Medical History Past Medical History: Hyperlipidemia, Hypertension, Renal Disease Additional Past Medical History / Comment(s): only has R Kidney/ chronic kidney disease; Hx of migraines & gout in the past History of Any Multi-Drug Resistant Organisms: None Reported Past Surgical History: Orthopedic Surgery Additional Past Surgical History / Comment(s): rt rotator cuff, 2015 colonoscopy with polypectomy (benign).Cataracts Past Anesthesia/Blood Transfusion Reactions: No Reported Reaction Past Psychological History: No Psychological Hx Reported Past Alcohol Use History: Occasional Past Drug Use History: None Reported - Past Family History Father Family Medical History: COPD Additional Family Medical History / Comment(s): Father of emphysema at the age of 69yrs. Mother Family Medical History: No Reported History Additional Family Medical History / Comment(s): Mother at the age of 75 yrs. Pt recalls that she was healthy. General Exam Limitations: no limitations General appearance: alert, in no apparent distress Head exam: Present: atraumatic, normocephalic, normal inspection Respiratory exam: Present: normal lung sounds bilaterally. Absent: respiratory distress, wheezes, rales, rhonchi, stridor Cardiovascular Exam: Present: regular rate, normal rhythm, normal heart sounds. Absent: systolic murmur, diastolic murmur, rubs, gallop, clicks Extremities exam: Present: other (Swelling and tenderness to the right ankle and dorsal aspect of the right foot. Mild erythema on the lateral aspect of the right dorsal foot. Minor overlying ecchymosis. 2+ dorsalis pedis and tibialis posterior pulses bilaterally. Capillary refill less than 1 second bilaterally.) Neurological exam: Present: alert, oriented X3, CN II-XII intact Course Vital Signs 12/16/21 12/16/21 10:02 14:23 Temperature 98.6 F Pulse Rate 79 75 Respiratory 20 16 Rate Blood Pressure 131/60 124/68 O2 Sat by Pulse 99 99 Oximetry Medical Decision Making - Medical Decision Making This is a 76-year-old male who presents to the emergency department for right ankle and foot pain and swelling. X-ray revealed possible joint effusion versus synovitis. It also advised a rheumatology referral if he had no known injury, which is the case with this patient. Duplex ultrasound did not identify a DVT. Patient did have an elevated CRP. Case discussed with Dr. Campoverde. He advised a prescription for Medrol Dosepak and follow-up with orthopedics who often evaluates rheumatologic problems as well. He is an established patient with [facility], and will contact them today for follow-up appointment. Given that patient has pain primarily when changing positions or turning the ankle, air stirrup splint was provided to use as needed. Erythema is very mild at this point, and suspicion for an infectious process is low. However, he was given strict return parameters, including increased erythema or fevers, which could indicate an infection and the need to return to the emergency department promptly. Return precautions reviewed in depth, the patient is instructed to return to the emergency department with any new, worsening, or concerning symptoms. Patient verbalized understanding. This case was discussed in detail with the attending ED physician. Presentation, findings, and treatment plan discussed in detail as well. - Lab Data Result diagrams: 12/16/21 11:16 12/16/21 11:16 Lab Results 12/16/21 12/16/21 Range/Units 11:16 11:16 WBC 3.6 L (3.8-10.6) k/uL RBC 3.56 L (4.30-5.90) m/uL Hgb 11.8 L (13.0-17.5) gm/dL Hct 35.4 L (39.0-53.0) % MCV 99.4 (80.0-100.0) fL MCH 33.2 (25.0-35.0) pg MCHC 33.4 (31.0-37.0) g/dL RDW 13.2 (11.5-15.5) % Plt Count 167 (150-450) k/uL MPV 7.9 Neutrophils % 69 % Lymphocytes % 17 % Monocytes % 10 % Eosinophils % 1 % Basophils % 0 % Neutrophils # 2.5 (1.3-7.7) k/uL Lymphocytes # 0.6 L (1.0-4.8) k/uL Monocytes # 0.4 (0-1.0) k/uL Eosinophils # 0.0 (0-0.7) k/uL Basophils # 0.0 (0-0.2) k/uL Sodium 137 (137-145) mmol/L Potassium 5.5 H (3.5-5.1) mmol/L Chloride 107 (98-107) mmol/L Carbon Dioxide 25 (22-30) mmol/L Anion Gap 5 mmol/L BUN 45 H (9-20) mg/dL Creatinine 1.74 H (0.66-1.25) mg/dL Est GFR (CKD-EPI)AfAm 43 (>60 ml/min/1.73 sqM) Est GFR (CKD-EPI)NonAf 38 (>60 ml/min/1.73 sqM) Glucose 108 H (74-99) mg/dL Uric Acid 6.7 (3.5-8.5) mg/dL Calcium 8.8 (8.4-10.2) mg/dL Total Bilirubin 0.7 (0.2-1.3) mg/dL AST 67 H (17-59) U/L ALT 64 H (4-49) U/L Alkaline Phosphatase 62 (38-126) U/L C-Reactive Protein 17.0 H (<1.0) mg/dL Total Protein 6.3 (6.3-8.2) g/dL Albumin 3.3 L (3.5-5.0) g/dL - Radiology Data Radiology results: report reviewed, image reviewed Disposition Clinical Impression: Right foot pain Disposition: HOME SELF-CARE Instructions (If sedation given, give patient instructions): Ankle Stirrup Splint (ED), Swollen Joint (ED) Additional Instructions: Return to the emergency department with any new, worsening, or concerning symp toms, especially if you develop fevers or the redness progresses. Take the Medrol Dosepak as prescribed. [facility] for an appointment. You can use the air stirrup splint if you find it to be helpful. Prescriptions: methylPREDNISolone Dose Pack [Medrol Dose Pack] 4 mg PO DIRECTED #21 tab Is patient prescribed a controlled substance at d/c from ED?: No Referrals: Justyna Maldonado III, MD [Primary Care Provider] - 1-2 days
[2021-12-16 11:26] LABS: Basophils % (A) 0 %; Eosinophils % (A) 1 %; HCT 35.4 % (39.0-53.0); HGB 11.8 gm/dL (13.0-17.5); Lymphocytes # (A) 0.6 k/uL (1.0-4.8); Lymphocytes % (A) 17 %; MCH 33.2 pg (25.0-35.0); MCHC 33.4 g/dL (31.0-37.0); MCV 99.4 fL (80.0-100.0); Mean Platelet Volume 7.9; Monocytes # (A) 0.4 k/uL (0-1.0); Monocytes % (A) 10 %; Neutrophils # (A) 2.5 k/uL (1.3-7.7); Neutrophils % (A) 69 %; Platelet Count 167 k/uL (150-450); RBC 3.56 m/uL (4.30-5.90); RDW 13.2 % (11.5-15.5); WBC 3.6 k/uL (3.8-10.6)
[2021-12-16 12:12] LABS: Calcium 8.8 mg/dL (8.4-10.2); Total Bilirubin 0.7 mg/dL (0.2-1.3); Uric Acid 6.7 mg/dL (3.5-8.5)
--- NOTE | 2021-12-16 12:44 | US ---
EXAMINATION TYPE: US venous doppler duplex LE RT DATE OF EXAM: 12/16/2021 12:33 PM COMPARISON: NONE CLINICAL HISTORY: 76-year-old male Pain and swelling to right foot and ankle. Edema and pain right an kle for 4 days SIDE PERFORMED: Right TECHNIQUE: The lower extremity deep venous system is examined utilizing real time linear array sonog jaqueline with graded compression, doppler sonography and color-flow sonography. FINDINGS: VESSELS IMAGED: Common Femoral Vein Deep Femoral Vein Greater Saphenous Vein * Femoral Vein Popliteal Vein Small Saphenous Vein * Proximal Calf Veins Posterior tibial veins (* superficial vessels) Right Leg: No evidence of DVT. Rouleaux flow noted IMPRESSION: No evidence for DVT within the right lower extremity. Some areas of slow flow are noted.
[2021-12-16 12:48] LABS: Total Protein 6.3 g/dL (6.3-8.2)
[2021-12-16 12:49] LABS: Albumin 3.3 g/dL (3.5-5.0); Potassium 5.5 mmol/L (3.5-5.1)
[2021-12-16] MEDS ORDERED: ACET/COD 300 MG/30 MG STARTER PACK 6 TAB BTL PO STA (13:37)
[2021-12-16 14:24] VITALS: BP 124/68; PULSE 75; RESP 16
== END 2021-12-16 14:24 | disposition home or self-care (01) ==
LOC: EC 09:55
DX: M79.671 Pain in right foot (principal); E78.5 Hyperlipidemia, unspecified; I10 Essential (primary) hypertension
CPT/HCPCS: 36415; 80053; 84550; 85025; 86140

== ENCOUNTER 2022-01-05 13:34 | Emergency (ER) | payer MEDICARE ==
[2022-01-05] MEDS ORDERED: SODIUM CHLORIDE 0.9% 1,000 ML IV STA (15:28)
[2022-01-05 16:03] LABS: Albumin 3.4 g/dL (3.5-5.0); Calcium 9.1 mg/dL (8.4-10.2); Potassium 4.6 mmol/L (3.5-5.1); Total Bilirubin 0.2 mg/dL (0.2-1.3); Total Protein 6.2 g/dL (6.3-8.2)
[2022-01-05 16:13] LABS: Basophils % (A) 1 %; Eosinophils # (A) 0.1 k/uL (0-0.7); Eosinophils % (A) 2 %; HCT 38.1 % (39.0-53.0); HGB 12.4 gm/dL (13.0-17.5); Lymphocytes % (A) 24 %; MCH 32.1 pg (25.0-35.0); MCHC 32.6 g/dL (31.0-37.0); MCV 98.6 fL (80.0-100.0); Mean Platelet Volume 7.7; Monocytes # (A) 0.3 k/uL (0-1.0); Monocytes % (A) 8 %; Neutrophils # (A) 2.6 k/uL (1.3-7.7); Neutrophils % (A) 64 %; Platelet Count 152 k/uL (150-450); RBC 3.86 m/uL (4.30-5.90); RDW 13.9 % (11.5-15.5); WBC 4.1 k/uL (3.8-10.6)
--- NOTE | 2022-01-05 16:22 | ED ---
Male Urogenital HPI - General Chief complaint: Urogenital Stated complaint: Urinary Time Seen by Provider: 01/05/22 15:02 Source: patient, family, RN notes reviewed Mode of arrival: ambulatory Limitations: no limitations - History of Present Illness Initial comments: This is a 76-year-old male who presents to the emergency department for urinary issues. States that for the last 2 weeks he has had increased urinary urgency and frequency. Also states that his urine is very cloudy. Denies any back pain. He does have some discomfort in the testes. He was only born with one kidney, the right kidney. States that yesterday he did have some chills and nausea, but attributes this to dehydration. Denies any fevers, sore throat, cough, dyspnea, chest pain, palpitations, abdominal pain, vomiting, diarrhea, back pain, or headaches. MD Complaint: other (urinary urgency and hesitency) Onset/Timin -: week(s) - Related Data Home Medications Medication Instructions Recorded Confirmed Aspirin 81 mg PO DAILY 10/09/14 12/16/21 Atorvastatin [Lipitor] 10 mg PO DAILY 11/30/17 12/16/21 Furosemide [Lasix] 40 mg PO BID 11/30/17 12/16/21 Verapamil Sr [Isoptin Sr] 180 mg PO BID 11/30/17 12/16/21 allopurinoL [Zyloprim] 100 mg PO DAILY 11/30/17 12/16/21 Fluticasone Nasal [place] [Flonase 1 spray EA NOSTRIL DAILY 12/16/21 12/16/21 Nasal [place]] Loratadine [Claritin] 10 mg PO DAILY 12/16/21 12/16/21 Losartan [Cozaar] 50 mg PO DAILY 12/16/21 12/16/21 Multivitamins, Thera [Multivitamin 1 tab PO DAILY 12/16/21 12/16/21 (formulary)] traMADol HCL 50 mg PO TID PRN 12/16/21 12/16/21 Previous Rx's Medication Instructions Recorded methylPREDNISolone Dose Pack 4 mg PO DIRECTED #21 tab 12/16/21 [Medrol Dose Pack] Cephalexin [Keflex] 1,000 mg PO Q12HR 7 Days #28 cap 01/05/22 Allergies Allergy/AdvReac Type Severity Reaction Status Date / Time No Known Allergies Allergy Verified 01/05/22 14:27 Review of Systems ROS Statement: Those systems with pertinent positive or pertinent negative responses have been documented in the HPI. ROS Other: All systems not noted in ROS Statement are negative. Past Medical History Past Medical History: Hyperlipidemia, Hypertension, Renal Disease Additional Past Medical History / Comment(s): only has R Kidney/ chronic kidney disease; Hx of migraines & gout in the past History of Any Multi-Drug Resistant Organisms: None Reported Past Surgical History: Orthopedic Surgery Additional Past Surgical History / Comment(s): rt rotator cuff, 2015 colonoscopy with polypectomy (benign).Cataracts Past Anesthesia/Blood Transfusion Reactions: No Reported Reaction Past Psychological History: No Psychological Hx Reported Past Alcohol Use History: Occasional Past Drug Use History: None Reported - Past Family History Father Family Medical History: COPD Additional Family Medical History / Comment(s): Father of emphysema at the age of 69yrs. Mother Family Medical History: No Reported History Additional Family Medical History / Comment(s): Mother at the age of 75 yrs. Pt recalls that she was healthy. General Exam Limitations: no limitations General appearance: alert, in no apparent distress Head exam: Present: atraumatic, normocephalic, normal inspection Respiratory exam: Present: normal lung sounds bilaterally. Absent: respiratory distress, wheezes, rales, rhonchi, stridor Cardiovascular Exam: Present: regular rate, normal rhythm, normal heart sounds. Absent: systolic murmur, diastolic murmur, rubs, gallop, clicks GI/Abdominal exam: Present: soft, normal bowel sounds. Absent: distended, tenderness, guarding, rebound, rigid Back exam: Absent: CVA tenderness (R), CVA tenderness (L) Neurological exam: Present: alert, oriented X3, CN II-XII intact Psychiatric exam: Present: normal affect, normal mood Skin exam: Present: warm, dry, intact, normal color. Absent: rash Course Vital Signs 01/05/22 01/05/22 14:25 18:42 Temperature 97.9 F 98.0 F Pulse Rate 68 57 L Respiratory 20 22 Rate Blood Pressure 136/70 149/69 O2 Sat by Pulse 99 100 Oximetry Medical Decision Making - Medical Decision Making This is a 76-year-old male who presents to the emergency department with increased urinary urgency and frequency. Urinalysis is consistent with a urinary tract infection and ultrasound reveals severe post void residual. Patient was straight cathed and 1100 mL of urine was removed. Patient given dose of ceftriaxone in the emergency department. He was discharged with a seven-day course of Keflex. Follow-up with urology listed on his discharge form. Also instructed him to follow up with his primary care provider this week. Return precautions reviewed in depth, the patient is instructed to return to the emergency department with any new, worsening, or concerning symptoms. Patient verbalized understanding. This case was discussed in detail with the attending ED physician. Presentation, findings, and treatment plan discussed in detail as well. - Lab Data Result diagrams: 01/05/22 15:42 01/05/22 15:42 Lab Results 01/05/22 01/05/22 01/05/22 Range/Units 15:03 15:42 15:42 WBC 4.1 (3.8-10.6) k/uL RBC 3.86 L (4.30-5.90) m/uL Hgb 12.4 L (13.0-17.5) gm/dL Hct 38.1 L (39.0-53.0) % MCV 98.6 (80.0-100.0) fL MCH 32.1 (25.0-35.0) pg MCHC 32.6 (31.0-37.0) g/dL RDW 13.9 (11.5-15.5) % Plt Count 152 (150-450) k/uL MPV 7.7 Neutrophils % 64 % Lymphocytes % 24 % Monocytes % 8 % Eosinophils % 2 % Basophils % 1 % Neutrophils # 2.6 (1.3-7.7) k/uL Lymphocytes # 1.0 (1.0-4.8) k/uL Monocytes # 0.3 (0-1.0) k/uL Eosinophils # 0.1 (0-0.7) k/uL Basophils # 0.0 (0-0.2) k/uL Sodium 138 (137-145) mmol/L Potassium 4.6 (3.5-5.1) mmol/L Chloride 106 (98-107) mmol/L Carbon Dioxide 28 (22-30) mmol/L Anion Gap 4 mmol/L BUN 38 H (9-20) mg/dL Creatinine 1.75 H (0.66-1.25) mg/dL Est GFR (CKD-EPI)AfAm 43 (>60 ml/min/1.73 sqM) Est GFR (CKD-EPI)NonAf 37 (>60 ml/min/1.73 sqM) Glucose 99 (74-99) mg/dL Calcium 9.1 (8.4-10.2) mg/dL Total Bilirubin 0.2 (0.2-1.3) mg/dL AST 20 (17-59) U/L ALT 23 (4-49) U/L Alkaline Phosphatase 86 (38-126) U/L Total Protein 6.2 L (6.3-8.2) g/dL Albumin 3.4 L (3.5-5.0) g/dL Urine Color Yellow Urine Appearance Turbid (Clear) Urine pH 6.0 (5.0-8.0) Ur Specific [place] 1.020 (1.001-1.035) Urine Protein 1+ H (Negative) Urine Glucose (UA) Negative (Negative) Urine Ketones Negative (Negative) Urine Blood Moderate H (Negative) Urine Nitrite Negative (Negative) Urine Bilirubin Negative (Negative) Urine Urobilinogen <2.0 (<2.0) mg/dL Ur Leukocyte Esterase Large H (Negative) Urine RBC >182 H (0-5) /hpf Urine WBC >182 H (0-5) /hpf - Radiology Data Radiology results: report reviewed, image reviewed Disposition Clinical Impression: Urinary tract infection Disposition: HOME SELF-CARE Instructions (If sedation given, give patient instructions): Urinary Tract Infection in Men (ED) Additional Instructions: Return to the emergency department with any new, worsening, or concerning s ymptoms. Contact urology for a follow-up appointment. Take the antibiotic as prescribed for 7 days. Prescriptions: Cephalexin [Keflex] 1,000 mg PO Q12HR 7 Days #28 cap Is patient prescribed a controlled substance at d/c from ED?: No Referrals: Justyna Maldonado III, MD [Primary Care Provider] - 1-2 days William Guzman MD [STAFF PHYSICIAN] - 1-2 days
[2022-01-05 16:27] LABS: Appearance,Urine Turbid (Clear); Bilirubin,Urine Negative (Negative); Blood,Urine Moderate (Negative); Color,Urine Yellow; Glucose,Urine (UA) Negative (Negative); Ketones,Urine Negative (Negative); Leukocyte Esterase,Urine Large (Negative); Nitrite,Urine Negative (Negative); Protein,Urine 1+ (Negative); RBC,Urine >182 /hpf (0-5); Urobilinogen,Urine <2.0 mg/dL (<2.0); WBC,Urine >182 /hpf (0-5)
[2022-01-05] MEDS ORDERED: cefTRIAXone IN SWFI 1,000 MG/10 ML SYRINGE IVP STA (16:43)
--- NOTE | 2022-01-05 17:20 | US ---
EXAMINATION TYPE: US kidneys/renal and bladder DATE OF EXAM: 01/05/2022 COMPARISON: CLINICAL HISTORY: Difficulty with urination. Patient born with only right kidney. EXAM MEASUREMENTS: Right Kidney: 12.2 x 6.1 x 8.4 cm Post Void Residual Volume: 951.3 mL Right Kidney: Multiple cysts seen throughout kidney. Largest upper pole = 5.0 x 4.5 x 5[address] lower = 4.7 x 4.5 x 3.9 cm. Left Kidney: Not visualized Bladder: Severely distended with internal echoes with diverticula. Right Jet seen ABNORMAL Post Void Residual There is no evidence for hydronephrosis at this point in time. No nephrolithiasis is seen. No phuc s are identified. The urinary bladder is anechoic. Bilateral ureteral jets are seen. IMPRESSION: Dilated urinary bladder measures 17.5 cm and suggestive of bladder outlet obstruction. Multiple right-sided renal cortical cysts. No hydronephrosis. No evidence of right renal obstruction. No solid renal mass. Left kidney not seen. Large postvoid residual volume of 950 mL.
[2022-01-05 18:44] VITALS: BP 149/69; PULSE 57; RESP 22; TEMP 98
== END 2022-01-05 18:42 | disposition home or self-care (01) ==
LOC: EC 13:34
DX: N39.0 Urinary tract infection, site not specified (principal); E78.5 Hyperlipidemia, unspecified; I10 Essential (primary) hypertension
CPT/HCPCS: 36415; 80053; 85025; 81001; 87086; 76770; 99284; 96374; 96361; J0696

== ENCOUNTER → 2022-02-28 | Outpatient (CLI) | payer MEDICARE ==
[2022-02-28 09:59] LABS: Creatinine,Urine Random 81.8 mg/dL; Protein/Creatinine Ratio,Urine 0.538
[2022-02-28 16:37] LABS: Basophils # (A) 0.02 X 10*3/uL (0.00-0.10); Basophils % (A) 0.5 %; Eosinophils # (A) 0.19 X 10*3/uL (0.04-0.35); Eosinophils % (A) 4.7 %; HCT 40.8 % (39.6-50.0); HGB 13.1 g/dL (13.0-17.0); Immature Grans, Automated 0.5 %; Lymphocytes # (A) 1.14 X 10*3/uL (0.90-5.00); Lymphocytes % (A) 28.1 %; MCH 32.1 pg (27.0-32.0); MCHC 32.1 g/dL (32.0-37.0); Mean Platelet Volume 11.2 fL (9.5-12.2); Monocytes % (A) 7.4 %; NRBC Per 100 WBC 0 /100 WBCS (0.0-0.0); Neutrophils # (A) 2.38 X 10*3/uL (1.80-7.70); Neutrophils % (A) 58.8 %; Platelet Count 120 X 10*3/uL (140-440); RBC 4.08 X 10*6/uL (4.40-5.60); RDW 13.8 % (11.5-14.5); WBC 4.05 X 10*3/uL (4.50-10.00)
[2022-02-28 17:27] LABS: Albumin 4.1 g/dL (3.8-4.9); Ferritin 58.2 ng/mL (22.0-322.0)
[2022-02-28 17:36] LABS: Appearance,Urine Cloudy (Clear); Bilirubin,Urine Negative (Negative); Blood,Urine Large (Negative); Color,Urine Yellow (Yellow); Ketones,Urine Negative (Negative); Nitrite,Urine Positive (Negative); Specific Gravity,Urine 1.013 (1.001-1.030); Urobilinogen,Urine 0.2 (0.2,1.0)
[2022-02-28 17:56] LABS: Magnesium 2.1 mg/dL (1.5-2.4); Phosphorus 3.1 mg/dL (2.4-5.1); Uric Acid 6.2 mg/dL (3.7-8.7)
[2022-02-28 18:00] LABS: % Iron Saturation 23.6 (15.00-50.00); African American GFR (CKD) 38.8 (60.0-200.0); Anion Gap 10.7 mmol/L (10.00-18.00); BUN/Creat Ratio 18.89 Ratio (12.00-20.00); Blood Urea Nitrogen 35.9 mg/dL (9.0-27.0); Calcium 9.1 mg/dL (8.7-10.3); Carbon Dioxide 24.3 mmol/L (20.0-27.5); Non-African American GFR(CKD) 33.5 (60.0-200.0)
[2022-02-28 18:12] LABS: Bacteria,Urine None Seen /HPF (None Seen)
== END | disposition home or self-care (01) ==
LOC: LABWHC1 09:11
PROVIDERS: ATTEND Nurse Practitioner Family
DX: E21.3 Hyperparathyroidism, unspecified (principal); E55.9 Vitamin D deficiency, unspecified; M10.9 Gout, unspecified; N39.0 Urinary tract infection, site not specified; D64.9 Anemia, unspecified; N18.30 Chronic kidney disease, stage 3 unspecified
CPT/HCPCS: 36415; 80048; 81001; 82040; 82306; 82570; 82728; 83540; 83550; 83735; 83970; 84100; 84156; 84550; 85025

== ENCOUNTER → 2022-07-09 | Outpatient (CLI) | payer MEDICARE ==
[2022-07-10 00:50] LABS: Basophils # (A) 0.02 X 10*3/uL (0.00-0.10); Basophils % (A) 0.5 %; Eosinophils # (A) 0.15 X 10*3/uL (0.04-0.35); Eosinophils % (A) 3.7 %; HCT 39.9 % (39.6-50.0); HGB 13.1 g/dL (13.0-17.0); Immature Grans, Automated 0.2 %; Lymphocytes # (A) 1.43 X 10*3/uL (0.90-5.00); Lymphocytes % (A) 35.2 %; MCH 32.8 pg (27.0-32.0); MCHC 32.8 g/dL (32.0-37.0); MCV 99.8 fL (80.0-97.0); Mean Platelet Volume 12.1 fL (9.5-12.2); Monocytes # (A) 0.33 X 10*3/uL (0.20-1.00); Monocytes % (A) 8.1 %; NRBC Per 100 WBC 0 /100 WBCS (0.0-0.0); Neutrophils # (A) 2.12 X 10*3/uL (1.80-7.70); Neutrophils % (A) 52.3 %; Platelet Count 117 X 10*3/uL (140-440); RDW 13.4 % (11.5-14.5); WBC 4.06 X 10*3/uL (4.50-10.00)
[2022-07-10 04:30] LABS: African American GFR (CKD) 40.4 (60.0-200.0); Anion Gap 12.1 mmol/L (10.00-18.00); BUN/Creat Ratio 22.93 Ratio (12.00-20.00); Blood Urea Nitrogen 42.2 mg/dL (9.0-27.0); Calcium 9.2 mg/dL (8.7-10.3); Non-African American GFR(CKD) 34.8 (60.0-200.0); Phosphorus 3.2 mg/dL (2.4-5.1); Potassium 4.1 mmol/L (3.5-5.5); Uric Acid 8.2 mg/dL (3.7-8.7)
[2022-07-10 04:53] LABS: Albumin 4.2 g/dL (3.8-4.9); Ferritin 81.2 ng/mL (22.0-322.0)
[2022-07-10 05:50] LABS: Appearance,Urine Clear (Clear); Bilirubin,Urine Negative (Negative); Blood,Urine Negative (Negative); Color,Urine Yellow (Yellow); Ketones,Urine Negative (Negative); Nitrite,Urine Negative (Negative); PH, Urine 5.5 (5.0-8.0); Specific Gravity,Urine 1.014 (1.001-1.030); Urobilinogen,Urine 0.2 (0.2,1.0)
== END | disposition home or self-care (01) ==
LOC: LABWHC1 14:31
PROVIDERS: ATTEND Internal Medicine Nephrology
DX: N18.32 Chronic kidney disease, stage 3b (principal)
CPT/HCPCS: 36415; 80048; 81001; 82040; 82043; 82306; 82570; 82728; 83540; 83550; 83735; 83970; 84100; 84550; 85025

== ENCOUNTER → 2022-11-04 | Outpatient (CLI) | payer MEDICARE ==
[2022-11-04 20:10] LABS: Basophils # (A) 0.02 X 10*3/uL (0.00-0.10); Basophils % (A) 0.5 %; Eosinophils # (A) 0.15 X 10*3/uL (0.04-0.35); Eosinophils % (A) 4.1 %; HCT 37.5 % (39.6-50.0); HGB 12.3 g/dL (13.0-17.0); Immature Grans, Automated 0.3 %; Lymphocytes # (A) 1.11 X 10*3/uL (0.90-5.00); Lymphocytes % (A) 30.4 %; MCH 32.1 pg (27.0-32.0); MCHC 32.8 g/dL (32.0-37.0); MCV 97.9 fL (80.0-97.0); Mean Platelet Volume 11.2 fL (9.5-12.2); Monocytes # (A) 0.31 X 10*3/uL (0.20-1.00); Monocytes % (A) 8.5 %; NRBC Per 100 WBC 0 /100 WBCS (0.0-0.0); Neutrophils # (A) 2.05 X 10*3/uL (1.80-7.70); Neutrophils % (A) 56.2 %; Platelet Count 128 X 10*3/uL (140-440); RBC 3.83 X 10*6/uL (4.40-5.60); RDW 13.6 % (11.5-14.5); WBC 3.65 X 10*3/uL (4.50-10.00)
[2022-11-04 20:24] LABS: Appearance,Urine Clear (Clear); Bilirubin,Urine Negative (Negative); Blood,Urine Negative (Negative); Color,Urine Yellow (Yellow); Ketones,Urine Negative (Negative); Nitrite,Urine Negative (Negative); PH, Urine 5.5 (5.0-8.0); Specific Gravity,Urine 1.014 (1.001-1.030); Urobilinogen,Urine 0.2 (0.2,1.0)
[2022-11-04 21:08] LABS: % Iron Saturation 28.57 (15.00-50.00); African American GFR (CKD) 39.6 (60.0-200.0); Anion Gap 11.7 mmol/L (10.00-18.00); BUN/Creat Ratio 25.99 Ratio (12.00-20.00); Blood Urea Nitrogen 48.6 mg/dL (9.0-27.0); Calcium 9.6 mg/dL (8.7-10.3); Carbon Dioxide 25.9 mmol/L (20.0-27.5); Magnesium 2.1 mg/dL (1.5-2.4); Non-African American GFR(CKD) 34.2 (60.0-200.0); Phosphorus 3.3 mg/dL (2.4-5.1); Potassium 4.5 mmol/L (3.5-5.5); Uric Acid 7.1 mg/dL (3.7-8.7)
[2022-11-04 21:38] LABS: Urine Creatinine 80.2 mg/dL (39.0-259.0)
[2022-11-04 23:50] LABS: Ferritin 95.4 ng/mL (22.0-322.0)
== END | disposition home or self-care (01) ==
LOC: LABWHC1 13:30
PROVIDERS: ATTEND Nurse Practitioner Family
DX: N25.81 Secondary hyperparathyroidism of renal origin (principal); N18.32 Chronic kidney disease, stage 3b; D63.1 Anemia in chronic kidney disease; E55.9 Vitamin D deficiency, unspecified; M10.9 Gout, unspecified; N39.0 Urinary tract infection, site not specified; R80.9 Proteinuria, unspecified
CPT/HCPCS: 36415; 80048; 81001; 82040; 82043; 82306; 82570; 82728; 83540; 83550; 83735; 83970; 84100; 84550; 85025

== ENCOUNTER → 2022-11-21 | Outpatient (CLI) | payer MEDICARE ==
[2022-11-21 12:29] LABS: African American GFR (CKD) 40 (>60 ml/min/1.73 sqM); Anion Gap 7 mmol/L; Blood Urea Nitrogen 49 mg/dL (9-20); Calcium 9.4 mg/dL (8.4-10.2); Carbon Dioxide 29 mmol/L (22-30); Chloride 105 mmol/L (98-107); Glucose 89 mg/dL (74-99); Non-African American GFR(CKD) 34 (>60 ml/min/1.73 sqM); Potassium 4.4 mmol/L (3.5-5.1); Sodium 141 mmol/L (137-145)
== END | disposition home or self-care (01) ==
LOC: LABWHC1 10:48
PROVIDERS: ATTEND Nurse Practitioner Family
DX: N18.32 Chronic kidney disease, stage 3b (principal)
CPT/HCPCS: 36415; 80048

== ENCOUNTER → 2023-03-01 | Outpatient (CLI) | payer MEDICARE ==
[2023-03-01 19:54] LABS: Appearance,Urine Clear (Clear); Bilirubin,Urine Negative (Negative); Blood,Urine Negative (Negative); Color,Urine Yellow (Yellow); Ketones,Urine Negative (Negative); Nitrite,Urine Negative (Negative); PH, Urine 5.5; Specific Gravity,Urine 1.013 (1.001-1.030); Urobilinogen,Urine 0.2 E.U./DL
[2023-03-01 20:17] LABS: Bacteria,Urine None Seen (None Seen)
[2023-03-01 21:36] LABS: Basophils # (A) 0.02 X 10*3/uL (0.00-0.10); Basophils % (A) 0.5 %; Eosinophils # (A) 0.11 X 10*3/uL (0.04-0.35); Eosinophils % (A) 2.6 %; HCT 38.5 % (39.6-50.0); HGB 12.8 d/dL (13.0-17.0); Lymphocytes # (A) 1.25 X 10*3/uL (0.90-5.00); Lymphocytes % (A) 29.7 %; MCH 32.7 pg (27.0-32.0); MCHC 33.2 d/dL (32.0-37.0); MCV 98.2 FL (80.0-97.0); Mean Platelet Volume 12.1 FL (9.5-12.2); Monocytes # (A) 0.35 X 10*3/uL (0.20-1.00); Monocytes % (A) 8.3 %; NRBC Per 100 WBC 0 X 10*3/uL (0.00-0.01); Neutrophils # (A) 2.47 X 10*3/uL (1.80-7.70); Neutrophils % (A) 58.7 %; Platelet Count 134 X 10*3/uL (140-440); RBC 3.92 X 10*6/uL (4.40-5.60); RDW 13.4 % (11.5-14.5); WBC 4.21 X 10*3/uL (4.50-10.00)
[2023-03-01 21:50] LABS: Magnesium 2.4 mg/dL (1.5-2.4); Phosphorus 3.8 mg/dL (2.4-5.1)
[2023-03-01 21:51] LABS: Albumin 4.2 d/dL (3.8-4.9); BUN/Creat Ratio 17.28 Ratio (12.00-20.00); Blood Urea Nitrogen 43.2 mg/dL (9.0-27.0); Calcium 9.7 mg/dL (8.7-10.3); Carbon Dioxide 24.5 mmol/L (21.6-31.8); Chloride 107 mmol/L (96-109); Ferritin 81.7 ng/mL (22.0-322.0); Glucose 85 mg/dL (70-110); Iron 71 UG/DL (65-175); Potassium 4.7 mmol/L (3.5-5.5); Sodium 144 mmol/L (135-145); Total Iron Binding Capacity 291 UG/DL (228-460); Uric Acid 7.1 mg/dL (3.7-8.7)
== END | disposition home or self-care (01) ==
LOC: LABWHC1 12:37
PROVIDERS: ATTEND Nurse Practitioner Family
DX: E55.9 Vitamin D deficiency, unspecified (principal); N25.81 Secondary hyperparathyroidism of renal origin; M10.9 Gout, unspecified; N39.0 Urinary tract infection, site not specified; D63.1 Anemia in chronic kidney disease; N18.31 Chronic kidney disease, stage 3a
CPT/HCPCS: 36415; 80048; 81001; 82040; 82043; 82306; 82570; 82728; 83540; 83550; 83735; 83970; 84100; 84550; 85025

== ENCOUNTER → 2023-04-20 | Outpatient (CLI) | payer MEDICARE ==
--- NOTE | 2023-04-20 15:23 | US ---
EXAMINATION TYPE: US kidneys/renal and bladder DATE OF EXAM: 04/20/2023 COMPARISON: NONE CLINICAL INDICATION: Male, 78 years old with history of N18.32 CHRONIC KIDNEY DISEASE; CKD, patient b orn with only right kidney EXAM MEASUREMENTS: Right Kidney: 10.6 x 5.3 x 5.4 cm Right Kidney: multiple cystic lesions visualized, largest = 5.6 x 3.9 x 4.9cm Left Kidney: not visualized Bladder: diverticula Bilateral Jets seen: right seen IMPRESSION: 1. Multiple prominent simple appearing right renal cysts. Polycystic kidney could be considered.
[2023-04-20 19:23] LABS: % Iron Saturation 9.06 (15.00-50.00); Albumin 4.1 d/dL (3.8-4.9); BUN/Creat Ratio 23.23 Ratio (12.00-20.00); Blood Urea Nitrogen 51.1 mg/dL (9.0-27.0); Calcium 9.4 mg/dL (8.7-10.3); Carbon Dioxide 25.2 mmol/L (21.6-31.8); Chloride 105 mmol/L (96-109); Glucose 85 mg/dL (70-110); Iron 28 UG/DL (65-175); Magnesium 2.2 mg/dL (1.5-2.4); Phosphorus 3.9 mg/dL (2.4-5.1); Potassium 4.3 mmol/L (3.5-5.5); Sodium 143 mmol/L (135-145); Total Iron Binding Capacity 309 UG/DL (228-460); Uric Acid 7.2 mg/dL (3.7-8.7)
[2023-04-20 20:08] LABS: Appearance,Urine Clear (Clear); Bilirubin,Urine Negative (Negative); Blood,Urine Negative (Negative); Color,Urine Yellow (Yellow); Ketones,Urine Negative (Negative); Nitrite,Urine Negative (Negative); PH, Urine 5.5; Specific Gravity,Urine 1.012 (1.001-1.030); Urobilinogen,Urine 0.2 E.U./DL
[2023-04-20 20:57] LABS: Urine Creatinine 87.8 mg/dL (39.0-259.0)
[2023-04-20 21:14] LABS: Basophils # (A) 0.02 X 10*3/uL (0.00-0.10); Basophils % (A) 0.5 %; Eosinophils # (A) 0.13 X 10*3/uL (0.04-0.35); Eosinophils % (A) 3.3 %; HCT 37.4 % (39.6-50.0); HGB 12.4 d/dL (13.0-17.0); Lymphocytes # (A) 1.19 X 10*3/uL (0.90-5.00); Lymphocytes % (A) 30.5 %; MCH 31.9 pg (27.0-32.0); MCHC 33.2 d/dL (32.0-37.0); MCV 96.1 FL (80.0-97.0); Mean Platelet Volume 11.6 FL (9.5-12.2); Monocytes # (A) 0.49 X 10*3/uL (0.20-1.00); Monocytes % (A) 12.6 %; NRBC Per 100 WBC 0 X 10*3/uL (0.00-0.01); Neutrophils # (A) 2.05 X 10*3/uL (1.80-7.70); Neutrophils % (A) 52.6 %; Platelet Count 115 X 10*3/uL (140-440); RBC 3.89 X 10*6/uL (4.40-5.60); RDW 13.9 % (11.5-14.5)
== END | disposition home or self-care (01) ==
LOC: RADUSWWP 13:31
PROVIDERS: ATTEND Internal Medicine Nephrology
DX: N18.32 Chronic kidney disease, stage 3b (principal); N28.1 Cyst of kidney, acquired
CPT/HCPCS: 76770; 80048; 81003; 82040; 82043; 82306; 82570; 82728; 83540; 83550; 83735; 83970; 84100; 84550; 85025

== ENCOUNTER → 2023-08-13 | Outpatient (CLI) | payer MEDICARE ==
[2023-08-13 15:10] LABS: Basophils # (A) 0.03 X 10*3/uL (0.00-0.10); Basophils % (A) 0.9 %; Eosinophils # (A) 0.13 X 10*3/uL (0.04-0.35); HGB 13.3 g/dL (13.0-17.0); Lymphocytes # (A) 1.04 X 10*3/uL (0.90-5.00); Lymphocytes % (A) 32.2 %; MCH 33.8 pg (27.0-32.0); MCV 96.4 FL (80.0-97.0); Mean Platelet Volume 11.1 FL (9.5-12.2); Monocytes # (A) 0.35 X 10*3/uL (0.20-1.00); Monocytes % (A) 10.8 %; NRBC Per 100 WBC 0 X 10*3/uL (0.00-0.01); Neutrophils # (A) 1.66 X 10*3/uL (1.80-7.70); Neutrophils % (A) 51.5 %; Platelet Count 135 X 10*3/uL (140-440); RBC 3.94 X 10*6/uL (4.40-5.60); RDW 13.7 % (11.5-14.5); WBC 3.23 X 10*3/uL (4.50-10.00)
[2023-08-13 15:33] LABS: % Iron Saturation 26.55 (15.00-50.00); Albumin 4.2 g/dL (3.8-4.9); BUN/Creat Ratio 23.15 Ratio (12.00-20.00); Blood Urea Nitrogen 46.3 mg/dL (9.0-27.0); Calcium 9.3 mg/dL (8.7-10.3); Carbon Dioxide 23.2 mmol/L (21.6-31.8); Chloride 105 mmol/L (96-109); Ferritin 93.9 ng/mL (22.0-322.0); Glucose 86 mg/dL (70-110); Iron 94 UG/DL (65-175); Magnesium 2.2 mg/dL (1.5-2.4); Phosphorus 3.2 mg/dL (2.4-5.1); Potassium 4.4 mmol/L (3.5-5.5); Sodium 141 mmol/L (135-145); Total Iron Binding Capacity 354 UG/DL (228-460); Uric Acid 7.5 mg/dL (3.7-8.7)
[2023-08-13 16:05] LABS: Appearance,Urine Clear (Clear); Bilirubin,Urine Negative (Negative); Blood,Urine Negative (Negative); Color,Urine Yellow (Yellow); Ketones,Urine Negative (Negative); Nitrite,Urine Negative (Negative); PH, Urine 6.5; Specific Gravity,Urine 1.006 (1.001-1.030); Urobilinogen,Urine 0.2 E.U./DL
== END | disposition home or self-care (01) ==
LOC: LABWHC1 11:06
PROVIDERS: ATTEND Internal Medicine Nephrology
DX: N18.32 Chronic kidney disease, stage 3b (principal); D63.1 Anemia in chronic kidney disease; N39.0 Urinary tract infection, site not specified; M10.9 Gout, unspecified; R80.9 Proteinuria, unspecified
CPT/HCPCS: 36415; 80048; 81003; 82040; 82043; 82570; 82728; 83540; 83550; 83735; 84100; 84550; 85025

== ENCOUNTER → 2023-10-05 | Outpatient (CLI) | payer MEDICARE ==
[2023-10-05 16:01] LABS: Basophils # (A) 0.02 X 10*3/uL (0.00-0.10); Basophils % (A) 0.6 %; Eosinophils # (A) 0.14 X 10*3/uL (0.04-0.35); Eosinophils % (A) 4.3 %; HCT 39.7 % (39.6-50.0); HGB 13.1 g/dL (13.0-17.0); Lymphocytes # (A) 1.11 X 10*3/uL (0.90-5.00); Lymphocytes % (A) 33.8 %; MCH 32.8 pg (27.0-32.0); MCV 99.3 FL (80.0-97.0); Mean Platelet Volume 11.2 FL (9.5-12.2); Monocytes # (A) 0.24 X 10*3/uL (0.20-1.00); Monocytes % (A) 7.3 %; NRBC Per 100 WBC 0 X 10*3/uL (0.00-0.01); Neutrophils # (A) 1.76 X 10*3/uL (1.80-7.70); Neutrophils % (A) 53.7 %; Platelet Count 110 X 10*3/uL (140-440); RDW 13.6 % (11.5-14.5); WBC 3.28 X 10*3/uL (4.50-10.00)
[2023-10-05 16:43] LABS: % Iron Saturation 18.41 (15.00-50.00); Blood Urea Nitrogen 56.4 mg/dL (9.0-27.0); Carbon Dioxide 21.8 mmol/L (21.6-31.8); Chloride 106 mmol/L (96-109); Glucose 88 mg/dL (70-110); Iron 65 UG/DL (65-175); Phosphorus 3.2 mg/dL (2.4-5.1); Potassium 4.3 mmol/L (3.5-5.5); Sodium 143 mmol/L (135-145); Total Iron Binding Capacity 353 UG/DL (228-460); Uric Acid 7.2 mg/dL (3.7-8.7)
[2023-10-05 16:44] LABS: Albumin 4.2 g/dL (3.8-4.9); Calcium 9.4 mg/dL (8.7-10.3); Ferritin 71.3 ng/mL (22.0-322.0)
[2023-10-05 17:38] LABS: Appearance,Urine Clear (Clear); Bilirubin,Urine Negative (Negative); Blood,Urine Negative (Negative); Color,Urine Yellow (Yellow); Ketones,Urine Negative (Negative); Nitrite,Urine Negative (Negative); Specific Gravity,Urine 1.006 (1.001-1.030); Urobilinogen,Urine 0.2 E.U./DL
[2023-10-05 19:13] LABS: Urine Creatinine 31.6 mg/dL (39.0-259.0)
== END | disposition home or self-care (01) ==
LOC: LABWHC1 08:57
PROVIDERS: ATTEND Internal Medicine Nephrology
DX: N25.81 Secondary hyperparathyroidism of renal origin (principal); N18.32 Chronic kidney disease, stage 3b; M10.9 Gout, unspecified; N39.0 Urinary tract infection, site not specified; D63.1 Anemia in chronic kidney disease; R80.9 Proteinuria, unspecified
CPT/HCPCS: 36415; 80048; 81003; 82040; 82043; 82306; 82570; 82728; 83540; 83550; 83735; 83970; 84100; 84550; 85025

== ENCOUNTER → 2024-02-25 | Outpatient (CLI) | payer MEDICARE ==
[2024-02-25 18:13] LABS: Basophils # (A) 0.03 X 10*3/uL (0.00-0.10); Basophils % (A) 0.7 %; Eosinophils # (A) 0.22 X 10*3/uL (0.04-0.35); Eosinophils % (A) 5.1 %; HCT 38.6 % (39.6-50.0); HGB 12.7 g/dL (13.0-17.0); Lymphocytes # (A) 1.33 X 10*3/uL (0.90-5.00); Lymphocytes % (A) 30.8 %; MCH 32.2 pg (27.0-32.0); MCHC 32.9 g/dL (32.0-37.0); MCV 97.7 FL (80.0-97.0); Mean Platelet Volume 11.8 FL (9.5-12.2); Monocytes # (A) 0.36 X 10*3/uL (0.20-1.00); Monocytes % (A) 8.3 %; NRBC Per 100 WBC 0 X 10*3/uL (0.00-0.01); Neutrophils # (A) 2.36 X 10*3/uL (1.80-7.70); Neutrophils % (A) 54.6 %; Platelet Count 127 X 10*3/uL (140-440); RBC 3.95 X 10*6/uL (4.40-5.60); RDW 13.2 % (11.5-14.5); WBC 4.32 X 10*3/uL (4.50-10.00)
[2024-02-26 03:10] LABS: % Iron Saturation 20.14 (15.00-50.00); ALT 60 U/L (10-49); AST 36 U/L (14-35); Albumin 4.3 g/dL (3.8-4.9); Albumin/Globulin Ratio 1.87 Ratio (1.60-3.17); Alkaline Phosphatase 89 U/L (41-126); BUN/Creat Ratio 22.38 Ratio (12.00-20.00); Calcium 9.5 mg/dL (8.7-10.3); Carbon Dioxide 26.4 mmol/L (21.6-31.8); Chloride 109 mmol/L (96-109); Chol/HDL Ratio 5.23 Ratio; Ferritin 92.5 ng/mL (22.0-322.0); Globulin 2.3 g/dL (1.6-3.3); Glucose 92 mg/dL (70-110); Iron 58 UG/DL (65-175); LDL Cholesterol,Calculated 32.5 mg/dL (0.0-131.0); Magnesium 2.3 mg/dL (1.5-2.4); Phosphorus 3.5 mg/dL (2.4-5.1); Potassium 4.8 mmol/L (3.5-5.5); Sodium 148 mmol/L (135-145); Total Bilirubin 0.3 mg/dL (0.3-1.2); Total Iron Binding Capacity 288 UG/DL (228-460); Total Protein 6.6 g/dL (6.2-8.2); Uric Acid 8.4 mg/dL (3.7-8.7)
== END | disposition home or self-care (01) ==
LOC: LABWHC1 13:54
PROVIDERS: ATTEND Nurse Practitioner Family
DX: Z00.01 Encounter for general adult medical examination with abnormal findings (principal); Q60.0 Renal agenesis, unilateral; I12.9 Hypertensive chronic kidney disease with stage 1 through stage 4 chronic kidney disease, or unspecified chronic kidney disease; N18.32 Chronic kidney disease, stage 3b; D63.1 Anemia in chronic kidney disease; M10.9 Gout, unspecified; E78.2 Mixed hyperlipidemia; E34.9 Endocrine disorder, unspecified; N25.81 Secondary hyperparathyroidism of renal origin; N39.0 Urinary tract infection, site not specified; E55.9 Vitamin D deficiency, unspecified; R80.9 Proteinuria, unspecified
CPT/HCPCS: 36415; 80053; 80061; 82306; 82728; 83036; 83540; 83550; 83735; 83970; 84100; 84443; 84550; 85025

== ENCOUNTER → 2024-05-26 | Outpatient (CLI) | payer MEDICARE ==
[2024-05-26 15:51] LABS: Basophils # (A) 0.03 X 10*3/uL (0.00-0.10); Basophils % (A) 0.9 %; Eosinophils # (A) 0.24 X 10*3/uL (0.04-0.35); Eosinophils % (A) 7.3 %; HCT 39.3 % (39.6-50.0); HGB 13.1 g/dL (13.0-17.0); Lymphocytes # (A) 1.06 X 10*3/uL (0.90-5.00); MCH 31.6 pg (27.0-32.0); MCHC 33.3 g/dL (32.0-37.0); MCV 94.7 FL (80.0-97.0); Mean Platelet Volume 11.2 FL (9.5-12.2); Monocytes # (A) 0.36 X 10*3/uL (0.20-1.00); Monocytes % (A) 10.9 %; NRBC Per 100 WBC 0 X 10*3/uL (0.00-0.01); Neutrophils # (A) 1.61 X 10*3/uL (1.80-7.70); Neutrophils % (A) 48.6 %; Platelet Count 108 X 10*3/uL (140-440); RBC 4.15 X 10*6/uL (4.40-5.60); RDW 14.3 % (11.5-14.5); WBC 3.31 X 10*3/uL (4.50-10.00)
[2024-05-26 15:58] LABS: % Iron Saturation 16.93 (15.00-50.00); BUN/Creat Ratio 19.83 Ratio (12.00-20.00); Blood Urea Nitrogen 35.7 mg/dL (9.0-27.0); Calcium 10.3 mg/dL (8.7-10.3); Carbon Dioxide 27.5 mmol/L (21.6-31.8); Chloride 105 mmol/L (96-109); Ferritin 67.8 ng/mL (22.0-322.0); Glucose 86 mg/dL (70-110); Iron 54 UG/DL (65-175); Potassium 4.6 mmol/L (3.5-5.5); Sodium 144 mmol/L (135-145); Total Iron Binding Capacity 319 UG/DL (228-460)
[2024-05-26 16:34] LABS: Appearance,Urine Clear (Clear); Bilirubin,Urine Negative (Negative); Blood,Urine Negative (Negative); Color,Urine Yellow (Yellow); Ketones,Urine Negative (Negative); Nitrite,Urine Negative (Negative); Specific Gravity,Urine 1.008 (1.001-1.030); Urobilinogen,Urine 0.2 E.U./DL
== END | disposition home or self-care (01) ==
LOC: LABWHC1 10:05
PROVIDERS: ATTEND Internal Medicine Nephrology
DX: N39.0 Urinary tract infection, site not specified (principal); N18.32 Chronic kidney disease, stage 3b; D63.1 Anemia in chronic kidney disease
CPT/HCPCS: 36415; 80048; 81003; 82728; 83540; 83550; 85025

== ENCOUNTER → 2024-08-18 | Outpatient (CLI) | payer MEDICARE ==
[2024-08-18 13:50] LABS: Appearance,Urine Clear (Clear); Bilirubin,Urine Negative (Negative); Blood,Urine Negative (Negative); Color,Urine Colorless; Glucose,Urine (UA) Negative (Negative); Ketones,Urine Negative (Negative); Leukocyte Esterase,Urine Negative (Negative); Nitrite,Urine Negative (Negative); PH, Urine 5.5 (5.0-8.0); Protein,Urine Negative (Negative); Specific Gravity,Urine 1.009 (1.001-1.035); Urobilinogen,Urine <2.0 mg/dL (<2.0)
[2024-08-18 17:10] LABS: Magnesium 1.9 mg/dL (1.5-2.4); Phosphorus 3.9 mg/dL (2.4-5.1)
[2024-08-18 17:11] LABS: % Iron Saturation 28.18 (15.00-50.00); Blood Urea Nitrogen 44.1 mg/dL (9.0-27.0); Calcium 9.8 mg/dL (8.7-10.3); Chloride 106 mmol/L (96-109); Ferritin 91.8 ng/mL (22.0-322.0); Glucose 92 mg/dL (70-110); Iron 93 UG/DL (65-175); Potassium 4.6 mmol/L (3.5-5.5); Sodium 144 mmol/L (135-145); Total Iron Binding Capacity 330 UG/DL (228-460)
[2024-08-18 17:39] LABS: Basophils # (A) 0.03 X 10*3/uL (0.00-0.10); Basophils % (A) 0.7 %; Eosinophils # (A) 0.21 X 10*3/uL (0.04-0.35); Eosinophils % (A) 5.1 %; HCT 39.2 % (39.6-50.0); HGB 12.7 g/dL (13.0-17.0); Lymphocytes # (A) 1.29 X 10*3/uL (0.90-5.00); Lymphocytes % (A) 31.2 %; MCH 31.8 pg (27.0-32.0); MCHC 32.4 g/dL (32.0-37.0); MCV 98.2 FL (80.0-97.0); Mean Platelet Volume 11.6 FL (9.5-12.2); Monocytes # (A) 0.36 X 10*3/uL (0.20-1.00); Monocytes % (A) 8.7 %; NRBC Per 100 WBC 0 X 10*3/uL (0.00-0.01); Neutrophils # (A) 2.23 X 10*3/uL (1.80-7.70); Neutrophils % (A) 53.8 %; Platelet Count 123 X 10*3/uL (140-440); RBC 3.99 X 10*6/uL (4.40-5.60); RDW 14.5 % (11.5-14.5); WBC 4.14 X 10*3/uL (4.50-10.00)
[2024-08-18 20:14] LABS: Urine Creatinine 54.2 mg/dL (39.0-259.0)
== END | disposition home or self-care (01) ==
LOC: LABWHC1 12:50
PROVIDERS: ATTEND Internal Medicine Nephrology
DX: N18.32 Chronic kidney disease, stage 3b (principal); D63.1 Anemia in chronic kidney disease; N39.0 Urinary tract infection, site not specified; E55.9 Vitamin D deficiency, unspecified; N25.81 Secondary hyperparathyroidism of renal origin; R80.9 Proteinuria, unspecified
CPT/HCPCS: 36415; 80048; 81003; 82043; 82306; 82570; 82728; 83540; 83550; 83735; 83970; 84100; 85025

== ENCOUNTER 2024-09-10 16:35 | Emergency (ER) | payer MEDICARE ==
[2024-09-10 16:46] VITALS: TEMP 98.6
[2024-09-10] MEDS: SODIUM CHLORIDE 0.9% 1,000 ML IV ONE (16:59)
[2024-09-10 17:07] LABS: Basophils % (A) 0 %; Eosinophils # (A) 0.3 k/uL (0-0.7); Eosinophils % (A) 4 %; HCT 41.6 % (39.0-53.0); HGB 13.7 gm/dL (13.0-17.5); Lymphocytes % (A) 15 %; MCH 31.5 pg (25.0-35.0); MCHC 32.8 g/dL (31.0-37.0); Mean Platelet Volume 8.2; Monocytes # (A) 0.3 k/uL (0-1.0); Monocytes % (A) 5 %; Neutrophils # (A) 5.1 k/uL (1.3-7.7); Neutrophils % (A) 75 %; Platelet Count 127 k/uL (150-450); RBC 4.34 m/uL (4.30-5.90); RDW 13.9 % (11.5-15.5); WBC 6.9 k/uL (3.8-10.6)
[2024-09-10 17:16] LABS: INR 0.9 (<1.2); Partial Thromboplastin Time 22.3 sec (22.0-30.0); Prothrombin Time 10.6 sec (10.0-12.5)
[2024-09-10 17:17] LABS: ALT 34 U/L (4-49); AST 36 U/L (17-59); African American GFR (CKD) 37 (>60 ml/min/1.73 sqM); Albumin 4.3 g/dL (3.5-5.0); Alkaline Phosphatase 90 U/L (38-126); Anion Gap 11 mmol/L; Blood Urea Nitrogen 53 mg/dL (9-20); Calcium 9.2 mg/dL (8.4-10.2); Carbon Dioxide 24 mmol/L (22-30); Chloride 104 mmol/L (98-107); Glucose 111 mg/dL (74-99); Non-African American GFR(CKD) 32 (>60 ml/min/1.73 sqM); Phosphorus 2.9 mg/dL (2.5-4.5); Potassium 4.2 mmol/L (3.5-5.1); Sodium 139 mmol/L (137-145); Total Bilirubin 0.9 mg/dL (0.2-1.3); Total Protein 7.2 g/dL (6.3-8.2)
--- NOTE | 2024-09-10 17:19 | ED ---
Altered Mental Status HPI - General Chief Complaint: Altered Mental Status Stated Complaint: AMS Time Seen by Provider: 09/10/24 16:41 Source: patient, EMS, RN notes reviewed, old records reviewed Mode of arrival: EMS Limitations: altered mental status - History of Present Illness Initial Comments: This is a 79-year-old male to the ER for evaluation today. Patient comes in for feeling uneasy a little off-balance lightheaded after working in the yard around noon today. Patient coming in for some headache some lightheadedness patient mainly concerned is suffering with difficulty in short-term memory could remember what was happening or why he was outside and symptoms persisted throughout the day prompting him to come to the emergency room today. Occasional headache here he does have high blood pressure just took his blood pressure medication mirela GUPTA Complaint: altered mental status - Related Data Home Medications Medication Instructions Recorded Confirmed Aspirin 81 mg PO DAILY 10/09/14 12/16/21 Atorvastatin [Lipitor] 10 mg PO DAILY 11/30/17 12/16/21 Furosemide [Lasix] 40 mg PO BID 11/30/17 12/16/21 Verapamil Sr [Isoptin Sr] 180 mg PO BID 11/30/17 12/16/21 allopurinoL [Zyloprim] 100 mg PO DAILY 11/30/17 12/16/21 Fluticasone Nasal [place] [Flonase 1 spray EA NOSTRIL DAILY 12/16/21 12/16/21 Nasal [place]] Loratadine [Claritin] 10 mg PO DAILY 12/16/21 12/16/21 Losartan [Cozaar] 50 mg PO DAILY 12/16/21 12/16/21 Multivitamins, Thera [Multivitamin 1 tab PO DAILY 12/16/21 12/16/21 (formulary)] traMADol HCL 50 mg PO TID PRN 12/16/21 12/16/21 Previous Rx's Medication Instructions Recorded methylPREDNISolone Dose Pack 4 mg PO DIRECTED #21 tab 12/16/21 [Medrol Dose Pack] Cephalexin [Keflex] 1,000 mg PO Q12HR 7 Days #28 cap 01/05/22 Allergies Allergy/AdvReac Type Severity Reaction Status Date / Time No Known Allergies Allergy Verified 09/10/24 16:46 Review of Systems ROS Statement: Those systems with pertinent positive or pertinent negative responses have been documented in the HPI. ROS Other: All systems not noted in ROS Statement are negative. Past Medical History Past Medical History: Hyperlipidemia, Hypertension, Renal Disease Additional Past Medical History / Comment(s): only has R Kidney/ chronic kidney disease; Hx of migraines & gout in the past History of Any Multi-Drug Resistant Organisms: None Reported Past Surgical History: Orthopedic Surgery Additional Past Surgical History / Comment(s): rt rotator cuff, 2015 colonoscopy with polypectomy (benign).Cataracts Past Anesthesia/Blood Transfusion Reactions: No Reported Reaction Past Psychological History: No Psychological Hx Reported Smoking Status: Former smoker Past Alcohol Use History: Occasional Past Drug Use History: None Reported - Past Family History Father Family Medical History: COPD Additional Family Medical History / Comment(s): Father of emphysema at the age of 69yrs. Mother Family Medical History: No Reported History Additional Family Medical History / Comment(s): Mother at the age of 75 yrs. Pt recalls that she was healthy. General Exam Limitations: altered mental status General appearance: alert, in no apparent distress Head exam: Present: atraumatic, normocephalic, normal inspection Eye exam: Present: normal appearance, PERRL, EOMI. Absent: scleral icterus, conjunctival injection, periorbital swelling ENT exam: Present: normal exam, mucous membranes moist Neck exam: Present: normal inspection. Absent: tenderness, meningismus, lymphadenopathy Respiratory exam: Present: normal lung sounds bilaterally. Absent: respiratory distress, wheezes, rales, rhonchi, stridor Cardiovascular Exam: Present: regular rate, normal rhythm, normal heart sounds. Absent: systolic murmur, diastolic murmur, rubs, gallop, clicks GI/Abdominal exam: Present: soft, normal bowel sounds. Absent: distended, tenderness, guarding, rebound, rigid Extremities exam: Present: normal inspection, full ROM, normal capillary refill. Absent: tenderness, pedal edema, joint swelling, calf tenderness Back exam: Present: normal inspection Neurological exam: Present: alert, oriented X3, CN II-XII intact Psychiatric exam: Present: normal affect, normal mood Skin exam: Present: warm, dry, intact, normal color. Absent: rash Course Vital Signs 09/10/24 09/10/24 09/10/24 16:41 16:46 17:00 Temperature 98.6 F Pulse Rate 80 85 Respiratory 20 19 Rate Blood Pressure 171/75 191/88 173/87 O2 Sat by Pulse 97 98 98 Oximetry 09/10/24 09/10/24 09/10/24 17:36 17:40 17:48 Temperature Pulse Rate 84 84 87 Respiratory 20 19 20 Rate Blood Pressure 165/75 164/79 174/76 O2 Sat by Pulse 97 97 97 Oximetry 09/10/24 09/10/24 09/10/24 17:56 17:58 18:00 Temperature Pulse Rate 87 85 86 Respiratory 21 20 18 Rate Blood Pressure 170/75 160/73 160/73 O2 Sat by Pulse 97 96 97 Oximetry 09/10/24 09/10/24 09/10/24 18:02 18:04 18:06 Temperature Pulse Rate 84 85 87 Respiratory 19 18 22 Rate Blood Pressure 158/74 161/75 161/75 O2 Sat by Pulse 96 98 97 Oximetry 09/10/24 09/10/24 09/10/24 18:08 18:10 18:12 Temperature Pulse Rate 86 86 88 Respiratory 18 19 16 Rate Blood Pressure 164/76 164/75 164/75 O2 Sat by Pulse 98 97 96 Oximetry 09/10/24 09/10/24 09/10/24 18:13 18:14 18:16 Temperature Pulse Rate 88 92 90 Respiratory 20 16 16 Rate Blood Pressure 160/72 161/72 161/72 O2 Sat by Pulse 97 97 97 Oximetry 09/10/24 09/10/24 09/10/24 18:18 18:20 18:22 Temperature Pulse Rate 90 89 Respiratory 15 16 18 Rate Blood Pressure 166/75 162/75 153/74 O2 Sat by Pulse 95 96 97 Oximetry 09/10/24 09/10/24 09/10/24 18:28 18:30 18:32 Temperature Pulse Rate 90 91 90 Respiratory 16 17 17 Rate Blood Pressure 172/74 170/80 173/76 O2 Sat by Pulse 95 95 97 Oximetry 09/10/24 09/10/24 09/10/24 18:34 18:36 18:38 Temperature Pulse Rate 92 93 91 Respiratory 16 22 13 Rate Blood Pressure 178/78 168/74 166/74 O2 Sat by Pulse 96 96 96 Oximetry 09/10/24 09/10/24 09/10/24 18:40 18:42 18:44 Temperature Pulse Rate 89 88 86 Respiratory 17 15 14 Rate Blood Pressure 161/79 171/82 181/87 O2 Sat by Pulse 97 98 97 Oximetry 09/10/24 09/10/24 09/10/24 18:46 18:48 18:50 Temperature Pulse Rate 87 89 86 Respiratory 16 15 20 Rate Blood Pressure 167/75 168/78 165/73 O2 Sat by Pulse 96 96 95 Oximetry 09/10/24 09/10/24 09/10/24 18:52 18:54 18:56 Temperature Pulse Rate 90 92 92 Respiratory 7 L 20 20 Rate Blood Pressure 163/72 158/72 154/79 O2 Sat by Pulse 96 96 96 Oximetry 09/10/24 09/10/24 09/10/24 18:58 19:00 19:02 Temperature Pulse Rate 91 92 92 Respiratory 14 19 14 Rate Blood Pressure 163/74 153/73 160/75 O2 Sat by Pulse 97 97 96 Oximetry 09/10/24 09/10/24 09/10/24 19:04 19:06 19:08 Temperature Pulse Rate 93 92 95 Respiratory 15 20 16 Rate Blood Pressure 164/73 158/67 163/75 O2 Sat by Pulse 96 97 96 Oximetry 09/10/24 09/10/24 09/10/24 19:10 19:12 19:28 Temperature Pulse Rate 93 93 Respiratory 17 21 Rate Blood Pressure 159/67 155/72 155/73 O2 Sat by Pulse 95 96 Oximetry - Reevaluation(s) Reevaluation #1: 09/10/24 17:20 Medical records reviewed No history of contributing medical ER visits History of hypertension Reevaluation #2: 09/10/24 19:00 Patient's blood pressure is improving on Cleviprex patient headache is improved Reevaluation #3: 09/10/24 19:00 Patient and family informed of results and questions answered Reevaluation #4: Was pt. sent in by a medical professional or institution (, PA, BASIN TENDER, urgent care, hospital, or shelter...) When possible be specific @ -no Did you speak to anyone other than the patient for history (EMS, parent, family, police, friend...)? What history was obtained from this source @ -no Did you review nursing and triage notes (agree or disagree)? Why? @ -agree Are old charts reviewed (outside hosp., previous admission, EMS record, old EKG, old radiological studies, urgent care reports/EKG's, shelter records)? Report findings @ -yes Differential Diagnosis (chest pain, altered mental status, abdominal pain women, abdominal pain men, vaginal bleeding, weakness, fever, dyspnea, syncope, headache, dizziness, GI bleed, back pain, seizure, CVA, palpatations, mental health, musculoskeletal)? @ -prior EKG interpreted by me (3pts min.). @ -yes X-rays interpreted by me (1pt min.). @ -no CT interpreted by me (1pt min.). @ -Yes positive for intracranial hemorrhage U/S interpreted by me (1pt. min.). @ -no What testing was considered but not performed or refused? (CT, X-rays, U/S, labs)? Why? @ -none What meds were considered but not given or refused? Why? @ -none Did you discuss the management of the patient with other professionals (professionals i.e. , PA, BASIN TENDER, lab, RT, psych nurse, social worker assistant, flying ii instructor, teacher, hotel security officer, caseworker protective services)? Give summary @ -no Was smoking cessation discussed for >3mins.? @ -no Was critical care preformed (if so, how long)? @ -yes31 Were there social determinants of health that impacted care today? How? (Homelessness, low income, unemployed, alcoholism, drug addiction, transportation, low edu. Level, literacy, decrease access to med. care, snf, rehab)? @ -none Was there de-escalation of care discussed even if they declined (Discuss DNR or withdrawal of care, Hospice)? DNR status @ -no What co-morbidities impacted this encounter? (DM, HTN, Smoking, COPD, CAD, Cancer, CVA, ARF, Chemo, Hep., AIDS, mental health diagnosis, sleep apnea, morbid obesity)? @ -none Was patient admitted / discharged? Hospital course, mention meds given and route, prescriptions, significant lab abnormalities, going to OR and other pertinent info. @ - 79 male to the ER for evaluation of altered mental status and short-term memory loss retrograde amnesia, unsure of falling patient came in from outside earlier today around 1 noon or 1:00 presents to the ER with confusion now elevated blood pressure blood pressure improved on Cleviprex patient does have subdural and subarachnoid hemorrhage will transfer for neurosurgery Transfer Undiagnosed new problem with uncertain prognosis? @ -no Drug Therapy requiring intensive monitoring for toxicity (Heparin, Nitro, Insulin, Cardizem)? @ -no Were any procedures done? @ -no Diagnosis/symptom? @ -Subdural hemorrhage Acute, or Chronic, or Acute on Chronic? @ -Acute Uncomplicated (without systemic symptoms) or Complicated (systemic symptoms)? @ -Complicated Side effects of treatment? @ -no Exacerbation, Progression, or Severe Exacerbation? @ -exacerbation Poses a threat to life or bodily function? How? (Chest pain, USA, CT, pneumonia, PE, COPD, DKA, ARF, appy, cholecystitis, CVA, Diverticulitis, Homicidal, Suicidal, threat to staff... and all critical care pts) @ -yes acute intracranial hemorrhage Reevaluation #5: Differential Altered Mental Status: Hypoglycemia, DKA, hypercapnia, ETOH, overdose, CO poisoning, trauma, myxedema coma, HTN encephalopathy, infection, encephalitis, psychosis, intercranial hemorrhage, hepatic encephalopathy, meningitis, CVA, this is not meant to be an all-inclusive list - Consultations Consultation #1: Spoke with at [facility] who accepts this patient for transfer Medical Decision Making - Medical Decision Making 79 male to the ER for evaluation of altered mental status and short-term memory loss retrograde amnesia, unsure of falling patient came in from outside earlier today around 1 noon or 1:00 presents to the ER with confusion now elevated blood pressure blood pressure improved on Cleviprex patient does have subdural and subarachnoid hemorrhage will transfer for neurosurgery - Lab Data Result diagrams: 09/10/24 16:49 09/10/24 16:49 Lab Results 09/10/24 09/10/24 09/10/24 Range/Units 16:49 16:49 16:49 WBC 6.9 (3.8-10.6) k/uL RBC 4.34 (4.30-5.90) m/uL Hgb 13.7 (13.0-17.5) gm/dL Hct 41.6 (39.0-53.0) % MCV 96.0 (80.0-100.0) fL MCH 31.5 (25.0-35.0) pg MCHC 32.8 (31.0-37.0) g/dL RDW 13.9 (11.5-15.5) % Plt Count 127 L (150-450) k/uL MPV 8.2 Neutrophils % 75 % Lymphocytes % 15 % Monocytes % 5 % Eosinophils % 4 % Basophils % 0 % Neutrophils # 5.1 (1.3-7.7) k/uL Lymphocytes # 1.0 (1.0-4.8) k/uL Monocytes # 0.3 (0-1.0) k/uL Eosinophils # 0.3 (0-0.7) k/uL Basophils # 0.0 (0-0.2) k/uL PT 10.6 (10.0-12.5) sec INR 0.9 (<1.2) APTT 22.3 (22.0-30.0) sec Sodium (137-145) mmol/L Potassium (3.5-5.1) mmol/L Chloride (98-107) mmol/L Carbon Dioxide (22-30) mmol/L Anion Gap mmol/L BUN (9-20) mg/dL Creatinine (0.66-1.25) mg/dL Est GFR (CKD-EPI)AfAm (>60 ml/min/1.73 sqM) Est GFR (CKD-EPI)NonAf (>60 ml/min/1.73 sqM) Glucose (74-99) mg/dL Lactic Ac Sepsis Rflx Plasma Lactic Acid [place] 2.4 H* (0.7-2.0) mmol/L Calcium (8.4-10.2) mg/dL Phosphorus (2.5-4.5) mg/dL Magnesium (1.6-2.3) mg/dL Total Bilirubin (0.2-1.3) mg/dL AST (17-59) U/L ALT (4-49) U/L Alkaline Phosphatase (38-126) U/L Ammonia <9 (<30) umol/L Troponin I (0.000-0.034) ng/mL NT-Pro-B Natriuret Pep pg/mL Total Protein (6.3-8.2) g/dL Albumin (3.5-5.0) g/dL TSH (0.465-4.680) mIU/L 09/10/24 09/10/24 09/10/24 Range/Units 16:49 16:49 17:31 WBC (3.8-10.6) k/uL RBC (4.30-5.90) m/uL Hgb (13.0-17.5) gm/dL Hct (39.0-53.0) % MCV (80.0-100.0) fL MCH (25.0-35.0) pg MCHC (31.0-37.0) g/dL RDW (11.5-15.5) % Plt Count (150-450) k/uL MPV Neutrophils % % Lymphocytes % % Monocytes % % Eosinophils % % Basophils % % Neutrophils # (1.3-7.7) k/uL Lymphocytes # (1.0-4.8) k/uL Monocytes # (0-1.0) k/uL Eosinophils # (0-0.7) k/uL Basophils # (0-0.2) k/uL PT (10.0-12.5) sec INR (<1.2) APTT (22.0-30.0) sec Sodium 139 (137-145) mmol/L Potassium 4.2 (3.5-5.1) mmol/L Chloride 104 (98-107) mmol/L Carbon Dioxide 24 (22-30) mmol/L Anion Gap 11 mmol/L BUN 53 H (9-20) mg/dL Creatinine 1.96 H (0.66-1.25) mg/dL Est GFR (CKD-EPI)AfAm 37 (>60 ml/min/1.73 sqM) Est GFR (CKD-EPI)NonAf 32 (>60 ml/min/1.73 sqM) Glucose 111 H (74-99) mg/dL Lactic Ac Sepsis Rflx Y Plasma Lactic Acid [place] (0.7-2.0) mmol/L Calcium 9.2 (8.4-10.2) mg/dL Phosphorus 2.9 (2.5-4.5) mg/dL Magnesium 2.0 (1.6-2.3) mg/dL Total Bilirubin 0.9 (0.2-1.3) mg/dL AST 36 (17-59) U/L ALT 34 (4-49) U/L Alkaline Phosphatase 90 (38-126) U/L Ammonia (<30) umol/L Troponin I <0.012 (0.000-0.034) ng/mL NT-Pro-B Natriuret Pep 345 pg/mL Total Protein 7.2 (6.3-8.2) g/dL Albumin 4.3 (3.5-5.0) g/dL TSH 3.840 (0.465-4.680) mIU/L - EKG Data -: EKG Interpreted by Me (EKG is sinus 87 ME 162 QRS 104 QTc 441) - Radiology Data Radiology results: report reviewed (CT brain is positive subarachnoid hemorrhage , CT angio head and neck negative for acute disease), image reviewed Critical Care Time Critical Care Time: Yes Total Critical Care Time: 31 Disposition Clinical Impression: Altered mental status, Delirium due to general medical condition, SAH (subarachnoid hemorrhage), Subdural hemorrhage Disposition: OTHER INSTITUTION NOT DEFINED Condition: Serious Is patient prescribed a controlled substance at d/c from ED?: No Referrals: Justyna Maldonado III, MD [Primary Care Provider] - 1-2 days Time of Disposition: 18:45 - Out of Hospital Transfer - Req. Specs Out of Hospital Transfer - Requested Specifics: Other Emergency Center ([facility])
--- NOTE | 2024-09-10 17:24 | CT ---
EXAMINATION TYPE: CT brain wo con DATE OF EXAM: 09/10/2024 5:11 PM COMPARISON: 09/01/1968. CLINICAL INDICATION: Male, 79 years old with history of ams, ams TECHNIQUE: Brain: Axial CT images of the brain were obtained with coronal and sagittal reformats created and rev iewed. Contrast used: None. Oral contrast used: None. CT DLP: 1144.9 mGycm, Automated exposure control for dose reduction was used. FINDINGS: Brain: Extra-axial spaces: High density blood products layering along the anterior falx up to 10 mm in thick ness, blood products also extending into the sulci bilaterally in the frontal lobes medially. Ventricular system: Within normal limits Cerebral parenchyma: No acute intraparenchymal hemorrhage or mass effect. The strickland-white junction is well differentiated. Cerebellum: Unremarkable. Mass effect: No evidence of midline shift. Intracranial vasculature: unremarkable Soft tissues: Normal. Calvarium/osseous structures: No depressed skull fracture. Paranasal sinuses and mastoid air cells: Mild scattered paranasal sinus disease. Visualized orbits: Bilateral aphakia IMPRESSION: Subdural and subarachnoid hemorrhage predominantly layering along the anterior falx and medial sulci. Findings communicated to Jorge Packer DO on 09/10/2024 5:[address] Sedrick Lei. [facility], , 09/10/2024 5:21 PM
[2024-09-10 17:26] LABS: NT-Pro-B-Type Natriuretic Pept 345 pg/mL
[2024-09-10 17:31] LABS: Lactic Acid, Venous 2.4 mmol/L (0.7-2.0)
[2024-09-10] MEDS: CLEVIDIPINE BUTYRATE 25 MG in EMPTY BAG 1 BAG IV SCH (17:52)
--- NOTE | 2024-09-10 18:34 | CT ---
EXAMINATION TYPE: CT angio head neck DATE OF EXAM: 09/10/2024 6:04 PM COMPARISON: CT brain from same day CLINICAL INDICATION: Male, 79 years old with history of sah, ams, TECHNIQUE: Axially acquired helical CT Angiogram of the Neck was obtained with and without contrast. Axial images are supplemented with coronal and sagittal MIP reconstructions. 3D reconstructions were also performed and were post-processed at an independent workstation. Estimated carotid stenosis was calculated using the NASCET criteria. Contrast CTA of the [place] was performed 3-D recons truction imaging obtained at a separate workstation. IV CONTRAST: with IV Contrast, patient injected with 65 ml mL of Isovue 370. (None if empty) CT DLP: 500.9 mGycm, Automated exposure control for dose reduction was used. FINDINGS: NECK: Right carotid system: Mild plaque is seen of the right common carotid artery. There is mild plaque a lso noted at the carotid bulb and proximal ICA. No significant diameter reduction. ECA is patent. Right vertebral artery appears unremarkable. Left carotid system: Mild plaque is seen of the left common carotid artery. There is mild plaque als o noted at the carotid bulb and proximal ICA. No significant diameter reduction. ECA is patent. Lef t vertebral artery appears unremarkable. Moderate to severe degenerative narrowing C5-6 with suspected central stenosis. BRAIN: Previously described predominant subdural and small subarachnoid hemorrhage redemonstrated. Vertebrob asilar system as well as intracranial portions of the internal carotid arteries and their major tribu taries are patent. I do not see evidence for sizable aneurysm or vascular malformation. Please note MRI provides greater sensitivity and specificity. Visualized brain appears grossly unremarkable. IMPRESSION: 1. No evidence for hemodynamically significant stenosis at the carotid bifurcations. No significant diameter reduction to account for the patient's symptoms. 2. No evidence for sizable intracranial aneurysm or high-grade stenosis. Intracranial hemorrhage as noted. [facility], , 09/10/2024 6:32 PM
[2024-09-10] MEDS: SODIUM CHLORIDE 0.9% 1,000 ML IV STA (18:43)
[2024-09-10] MEDS: levETIRAcetam IV 500 MG/5 ML VIAL IVP STA (19:06)
[2024-09-10 19:20] VITALS: PULSE 93; RESP 21
[2024-09-10 19:30] VITALS: BP 155/73
== END 2024-09-10 19:43 | disposition other institution (70) ==
LOC: EC 16:35
DX: R41.82 Altered mental status, unspecified (principal); F05 Delirium due to known physiological condition; I60.9 Nontraumatic subarachnoid hemorrhage, unspecified; I62.00 Nontraumatic subdural hemorrhage, unspecified; Z87.891 Personal history of nicotine dependence
CPT/HCPCS: 36415; 93005; 83880; 80053; 82140; 83605; 83735; 84100; 84443; 84484; 85025; 85610; 85730; 70496; 70450; 70498; 99291; 96365; 96366; 96375; 96361; J1953; C9248; Q9967

== ENCOUNTER → 2024-12-15 | Outpatient (CLI) | payer MEDICARE ==
[2024-12-15 19:16] LABS: Basophils # (A) 0.03 X 10*3/uL (0.00-0.10); Basophils % (A) 0.7 %; Eosinophils # (A) 0.24 X 10*3/uL (0.04-0.35); Eosinophils % (A) 5.7 %; HCT 36.6 % (39.6-50.0); Lymphocytes # (A) 1.29 X 10*3/uL (0.90-5.00); Lymphocytes % (A) 30.7 %; MCH 31.8 pg (27.0-32.0); MCHC 32.8 g/dL (32.0-37.0); MCV 97.1 FL (80.0-97.0); Mean Platelet Volume 11.4 FL (9.5-12.2); Monocytes # (A) 0.44 X 10*3/uL (0.20-1.00); Monocytes % (A) 10.5 %; NRBC Per 100 WBC 0 X 10*3/uL (0.00-0.01); Neutrophils # (A) 2.19 X 10*3/uL (1.80-7.70); Neutrophils % (A) 52.2 %; Platelet Count 122 X 10*3/uL (140-440); RBC 3.77 X 10*6/uL (4.40-5.60); RDW 13.2 % (11.5-14.5)
[2024-12-15 19:23] LABS: Appearance,Urine Clear (Clear); Bilirubin,Urine Negative (Negative); Blood,Urine Negative (Negative); Color,Urine Yellow (Yellow); Ketones,Urine Negative (Negative); Nitrite,Urine Negative (Negative); PH, Urine 5.5; Specific Gravity,Urine 1.014 (1.001-1.030); Urobilinogen,Urine 0.2 E.U./DL
[2024-12-15 20:39] LABS: BUN/Creat Ratio 25.77 Ratio (12.00-20.00); Blood Urea Nitrogen 56.7 mg/dL (9.0-27.0); Calcium 9.7 mg/dL (8.7-10.3); Chloride 108 mmol/L (96-109); Ferritin 79.5 ng/mL (22.0-322.0); Glucose 89 mg/dL (70-110); Potassium 4.9 mmol/L (3.5-5.5); Sodium 143 mmol/L (135-145)
[2024-12-15 21:02] LABS: Magnesium 2.1 mg/dL (1.5-2.4); Phosphorus 5.1 mg/dL (2.4-5.1)
[2024-12-15 21:23] LABS: % Iron Saturation 21.55 (15.00-50.00); Iron 61 UG/DL (65-175); Total Iron Binding Capacity 283 UG/DL (228-460)
== END | disposition home or self-care (01) ==
LOC: LABWHC1 13:05
PROVIDERS: ATTEND Nurse Practitioner Family
DX: N18.32 Chronic kidney disease, stage 3b (principal); D63.1 Anemia in chronic kidney disease; N39.0 Urinary tract infection, site not specified; E55.9 Vitamin D deficiency, unspecified; N25.81 Secondary hyperparathyroidism of renal origin; R80.9 Proteinuria, unspecified
CPT/HCPCS: 36415; 80048; 81003; 82043; 82306; 82570; 82728; 83540; 83550; 83735; 83970; 84100; 85025